=== PATIENT | female | born 1950 | race Caucasian/White ===

== ENCOUNTER 2016-12-26 18:11 | Inpatient (IN) | payer MEDICARE, OTHER ==
[~2016-12-26] VITALS: Ht 160 cm; Wt 73.8 kg
[~2016-12-26 18:11] MED LIST: /ESOM40CA; /WARF25TA; ACET65TA; CODCAP; COUM1TAB; FLEXERIL; GARLPOW; IMMODIUM; OMEGA 3; PERC5TAB8; PERC7.5T8; PROZ40CA; SIMV20TA2; VERA240T11; VITA100T; VITAMIN D50000 UNT; WELCHOL
--- NOTE | 2016-12-26 18:49 | REP ---
Portable chest, single AP view, the patient semi upright: Comparison is the PA and lateral study of 2009. The lung higginboth[place] are clear. The cardiac size is normal. The kati, mediastinum, and bony thorax are unremarkable. Impression: Negative portable chest. Signed by Ramone Lombardi MD 12/26/2016 06:41 P
[2016-12-26 19:05] LABS: DIFF SLIDE NUMBER 312; RED CELL DISTRIBUTION WIDTH 12.3 % (11.5-14.5); WHITE BLOOD COUNT 5.3 K/mm3 (4.0-10.0)
[2016-12-26 19:27] LABS: CHLORIDE LEVEL 88 MEQ/L (98-107); CREATININE FOR GFR 0.53 MG/DL (0.55-1.02); GLUCOSE, FASTING 207 MG/DL (80-110); POTASSIUM SERUM 3.8 MEQ/L (3.5-5.1); SODIUM LEVEL 127 MEQ/L (136-145)
[2016-12-26 19:40] LABS: MEAN CORPUSCULAR HEMOGLOBIN 38.4 pg (27.0-33.0)
[2016-12-26 19:41] LABS: MEAN CORPUSCULAR HGB CONC 38.8 g/dl (32.0-36.5); PLATELET COUNT, AUTOMATED 157 k/mm3 (150-450)
[2016-12-26 19:55] LABS: BASOPHILS 1 % (0-4)
[2016-12-26 20:01] LABS: BLOOD UREA NITROGEN 11 MG/DL (7-18); CALCIUM LEVEL 7.9 MG/DL (8.8-10.2)
[2016-12-26] MEDS ORDERED: NS 500 ML IV ONE (20:30)
[2016-12-26 20:32] LABS: ANION GAP 11 MEQ/L (8-16); CARBON DIOXIDE LEVEL 28 MEQ/L (21-32)
[2016-12-26] MEDS ORDERED: CALA240T PO (21:30)
[2016-12-26] MEDS ORDERED: CHOLPOW (21:30)
[2016-12-26] MEDS ORDERED: ASPI81TA85 PO (21:30)
[2016-12-26] MEDS ORDERED: CALC1TAB40 PO (21:30)
[2016-12-26] MEDS ORDERED: ATOR40TA PO (21:30)
[2016-12-26] MEDS ORDERED: MILK200C PO (21:30)
[2016-12-26] MEDS ORDERED: FLUO20CA8 PO (21:30)
[2016-12-26] MEDS ORDERED: ALLO10TA PO (21:30)
[2016-12-26] MEDS ORDERED: FLAX1000 PO (21:30)
[2016-12-26] MEDS ORDERED: clonidine TOP (21:30)
[2016-12-26] MEDS ORDERED: CHOL4POW4 PO (21:30)
[2016-12-26] MEDS ORDERED: MICA80TA3 PO (21:32)
[2016-12-26] MEDS ORDERED: AMIT50TA PO (21:35)
[2016-12-26] MEDS ORDERED: LR 1,000 ML IV ONE (22:30)
[2016-12-26] MEDS ORDERED: BENA25TA9 PO (23:17)
[2016-12-26] MEDS ORDERED: ALPR0.25 PO (23:17)
[2016-12-26] MEDS ORDERED: ESOM1CAP5 PO (23:17)
[2016-12-26] MEDS ORDERED: NS 1,000 ML IV SCH (23:36)
[2016-12-27] VITALS (8 sets, daily range): BP systolic 127–186; BP diastolic 72–84
[2016-12-27 00:56] LABS: CARBON DIOXIDE LEVEL 28 MEQ/L (21-32); CHLORIDE LEVEL 96 MEQ/L (98-107); CREATININE FOR GFR 0.64 MG/DL (0.55-1.02); GLUCOSE, FASTING 196 MG/DL (80-110); POTASSIUM SERUM 3.9 MEQ/L (3.5-5.1); SODIUM LEVEL 131 MEQ/L (136-145)
[2016-12-27] MEDS: AMITRIPTYLINE 50 MG TAB PO SCH ×2 (01:07→21:00)
[2016-12-27 01:15] LABS: BLOOD UREA NITROGEN 8 MG/DL (7-18); CALCIUM LEVEL 8.2 MG/DL (8.8-10.2)
[2016-12-27 01:25] LABS: ANION GAP 7 MEQ/L (8-16)
--- NOTE | 2016-12-27 01:53 | HPE ---
DATE OF ADMISSION: 12/26/2016 PRIMARY CARE PROVIDER: Dr. Sumeet Enriquez ORTHOPEDIC SURGERY: Dr. Mack [facility]. NEUROLOGY: Dr. Newman OPTHALMOLOGY: Dr. Quiroga CHIEF COMPLAINT: Dizziness when standing. HISTORY OF PRESENT ILLNESS: The patient is a 66-year-old female with a history of hypertension and chronic back and neck pain who, three weeks ago, started a new patch from her primary care provider. She thought it was a patch for pain. Since then, she has had progressively worsening lightheadedness and dizziness when standing. In the emergency room the patch was examined and found to be clonidine. The patient was not aware that this was aware this was an antihypertensive and she thought it was a pain patch. At the present time, the patient reports she feels a little bit better with the patch removed and getting some IV fluids. In passing, the patient reports that she has been feeling tremulous for about one year. She has seen Dr. Newman and Dr. Enriquez and without any clear answer as to why she has her tremulous sensations. At the present time, she is feeling better. She denies chest pain, shortness of breath, fevers, chills, nausea, vomiting, or diarrhea. PAST MEDICAL HISTORY: 1. Irritable bowel syndrome. 2. Hypertension. 3. Depression. 4. Chronic back pain. 5. Gastroesophageal reflux disease. 6. Gout. 7. Carpal tunnel syndrome. 8. Anxiety. ALLERGIES: MILK PRODUCTS, CODEINE, ERYTHROMYCIN, LISINOPRIL. SURGICAL HISTORY: 1. Right knee arthroplasty 2008. 2. Tubal ligation many decades ago. 3. Liver biopsy 2014. SOCIAL HISTORY: The patient has been under significant stress and anxiety lately. Her sister earlier this month. She is moving this month. She admits to having two drinks per day. She denies tobacco or illicit drug use. She lives with her who accompanies her to the emergency room. FAMILY HISTORY: The patient tells me she had a sister with [employer]'s. REVIEW OF SYSTEMS: Negative other than history of present illness (HPI). HOME MEDICATIONS: - calcium, magnesium and zinc supplement - Nexium 40 mg daily - linseed (flaxseed) oil 2000 grams daily - Micardis 80/12.5 mg daily - Silybum marianum (milk thistle) 400 mg daily - allopurinol 100 mg daily - Xanax 0.25 mg three times a day as needed for anxiety - amitriptyline 50 mg at bedtime - atorvastatin 40 mg daily - diphenhydramine 25 mg daily - fluoxetine 40 mg daily - verapamil 240 mg daily PHYSICAL EXAMINATION: Temperature 98.2, respiratory rate 15, blood pressure 166/76 while laying, 149/88 while standing, oxygen saturation 98% on room air. GENERAL: She is a pleasant, obese female laying flat in bed. She is in no distress. HEENT: Cranial nerves II-XII are grossly intact. She has moist mucous membranes. No elevation of central venous pressure (CVP). CARDIOVASCULAR EXAMINATION: S1, S2. Regular. She is not bradycardic. RESPIRATORY EXAMINATION: Clear. ABDOMINAL EXAMINATION: Obese. EXTREMITIES: No clubbing, cyanosis or edema. NEUROLOGICALLY: She is intact. She does not wish to cooperate with gait testing at this time. LABORATORY STUDIES: WBC 5.3, hemoglobin 14.7, platelet count 157. Chemistry panel: Sodium 127, potassium 3.8, chloride 88, bicarbonate 28, BUN 11, creatinine 0.5. One set of cardiac enzymes is negative. IMAGING: Chest x-ray was a negative portable study. ASSESSMENT AND PLAN: This is a 66-year-old female with symptomatic orthostatic hypotension and hyponatremia. PROBLEMS: 1. Symptomatic orthostatic hypotension. The patient was recently started on clonidine patches and her symptoms gradually worsened since then. This is likely secondary to over-medication with antihypertensives. At this time, the clonidine patches will be discontinued. I will continue her with her telmisartan and verapamil with holding parameters. Monitor her on telemetry to rule out an arrhythmias. 2. Hyponatremia. Will check a stat basic metabolic panel (BMP) at this time as she was 127 and she received IV fluids. She is on 12.5 mg of hydrochlorothiazide at home, which could potentially be causing this. She is also on fluoxetine, which could be causing this. We will stop hydrochlorothiazide and decrease her dose of fluoxetine from 40 mg to 20 mg. 3. Chronic tremulousness. The patient has had significant anxiety, but worse anxiety tremors and hyponatremia are known adverse effects to fluoxetine, and as such, I will taper down this medication, but I would not abruptly stop it, as a trial to see if this does improve her symptoms. 4. Anxiety. Continue with amitriptyline. 5. Depression. Continue with fluoxetine at a lower dose. 6. Dyslipidemia. Continue with Lipitor. 7. Gout. Continue with allopurinol. 8. Deep venous thrombosis (DVT) prophylaxis. The patient will be on Lovenox. 9. Gastroesophageal reflux disease. The patient will be on pantoprazole. 10. Chronic neck and back pain. She does not have any prescription medications for this at this time. Will continue to monitor. If she does develop pain, we will consider acetaminophen. DISPOSITION: The patient is admitted to the progressive care unit to Dr. Magdaleno's service, who will continue following the patient at 7:00 a.m. tomorrow.
[2016-12-27 07:31] LABS: MEAN CORPUSCULAR HEMOGLOBIN 36.2 pg (27.0-33.0); MEAN CORPUSCULAR VOLUME 98.9 fl (80.0-96.0); RED CELL DISTRIBUTION WIDTH 12.5 % (11.5-14.5)
[2016-12-27 08:00] LABS: ALKALINE PHOSPHATASE 203 U/L (45-117); AST/SGOT 198 U/L (15-37); BILIRUBIN,TOTAL 0.6 MG/DL (0.2-1.0); BLOOD UREA NITROGEN 5 MG/DL (7-18); CALCIUM LEVEL 7.9 MG/DL (8.8-10.2); CARBON DIOXIDE LEVEL 20 MEQ/L (21-32); CHLORIDE LEVEL 102 MEQ/L (98-107); GLUCOSE, FASTING 123 MG/DL (80-110); POTASSIUM SERUM 3.5 MEQ/L (3.5-5.1); TOTAL PROTEIN 6.3 GM/DL (6.4-8.2)
[2016-12-27 08:14] LABS: MEAN CORPUSCULAR HGB CONC 36.7 g/dl (32.0-36.5)
[2016-12-27] MEDS ORDERED: OXAZEPAM 10 MG CAP PO PRN (08:15)
[2016-12-27 08:17] LABS: ALT/SGPT 182 U/L (12-78)
--- NOTE | 2016-12-27 08:27 | ECGEPIP ---
Stationary ECG Study [facility] - ED Test Date: 2016-12-26 Pat Name: SHUBHAM ESCOBAR Department: Room: [place] [address] Gender: F Income Auditor: UriosteguiB: 1950 Requested By: CRISTOPHER Nails Order Number: [id number] Reading MD: Loco Robertson Measurements Intervals [place] Rate: 93 P: 59 [place]: 168 QRS: 17 QRSD: 86 T: 40 QT: 359 QTc: 448 Interpretive Statements SINUS RHYTHM WITH 1ST DEGREE AV BLOCK Electronically Signed On 12-27-2016 8:27:11 EDT by Loco Robertson
[2016-12-27 08:29] LABS: ALBUMIN 2.7 GM/DL (3.2-5.2); ALBUMIN/GLOBULIN RATIO 0.75 (1.00-1.93); ANION GAP 15 MEQ/L (8-16); SODIUM LEVEL 137 MEQ/L (136-145)
[2016-12-27] MEDS ORDERED: FLUoxetine 20 MG CAP PO SCH (09:00)
[2016-12-27] MEDS: hydroCHLOROthiazide 12.5 MG CAPSULE PO SCH (10:22)
[2016-12-27] MEDS: ATORVASTATIN 20 MG TAB PO SCH (10:23)
[2016-12-27] MEDS: diphenhydrAMINE 25 MG CAP PO SCH (10:23)
[2016-12-27] MEDS: FLUoxetine 20 MG CAP PO SCH (10:23)
[2016-12-27] MEDS: PANTOPRAZOLE 40MG TAB (PROTONIX) PO SCH (10:23)
[2016-12-27] MEDS: ENOXAPARIN 40 MG/0.4 ML SYRINGE (J1650) SC SCH (10:24)
[2016-12-27] MEDS: ALLOPURINOL 100 MG TAB PO SCH (10:24)
[2016-12-27] MEDS: TELMISARTAN 20 MG TAB PO SCH (10:24)
[2016-12-27] MEDS: FLUTICASONE PROP 0.05% NASAL SPRAY 16 GM (FLONASE) SCH ×2 (10:25→21:00)
[2016-12-27] MEDS: VERAPAMIL 120 MG SR TAB PO SCH (10:25)
--- NOTE | 2016-12-27 11:11 | IPN ---
DATE: 12/27/2016 66-year-old female seen at bedside, resting comfortably. I did note that her blood pressure has been elevated. She has complained about a headache behind her eyes. She has had some clear sinus drainage and a history of seasonal allergies. No cough. OBJECTIVE: VITAL SIGNS: Temperature is 97.7, pulse 93, respiratory rate 20, blood pressure 170/79, SpO2 is 96% on room air. GENERAL APPEARANCE: She is alert, oriented, pleasant. HEENT: Clear rhinorrhea with postnasal drip. Otherwise, unremarkable. LUNGS: Clear. HEART: Regular rate and rhythm. ABDOMEN: Soft, obese, nontender, nondistended. Positive bowel sounds. No masses. No rebound. EXTREMITIES: No edema. No calf tenderness. LABORATORY DATA: White count is 4.0, hemoglobin 12.1, platelets 130,000. Sodium 137, potassium 3.5, chloride 102, bicarbonate 20, anion gap 15, BUN is 5, creatinine 0.70, glucose 123. AST 198, ALT is 182, alkaline phosphatase 203, albumin is 2.7. ASSESSMENT AND PLAN: 1. Symptomatic orthostatic hypotension, seems to be improved. Her clonidine patch has been removed and now her systolic blood pressure seems to be running high. We will need to make some adjustments. 2. Hypertension. We will go ahead and give her morning dose of Micardis. We will make sure that she is back on her home medications except for the clonidine patch and make appropriate adjustments regarding her blood pressure. 3. Hyponatremia, resolved. We will resume her hydrochlorothiazide. 4. Elevated transaminitis. We will go ahead and check the right upper quadrant ultrasound, hepatitis panel. However, she does have a history of alcohol use, according to the family. Her total bilirubin was 0.6. 5. Alcohol use/abuse. The patient is unable to quantify more than she drinks "some wine every day." We will go ahead and put as needed Serax on and monitor for withdrawal symptoms. 6. Irritable bowel syndrome, stable. 7. Depression, stable. No active disease. 8. Chronic back pain, stable. 9. Gastroesophageal reflux disease (GERD), stable. 10. History of gout, stable. 11. Carpal tunnel syndrome by history. No current issues. 12. History of anxiety, appears to be stable. 13. Deep vein thrombosis (DVT) prophylaxis. Lovenox. DISPOSITION: Again, the patient's clonidine patch has been discontinued, since it did appear to make her more orthostatic. We will resume her hydrochlorothiazide and continue on Verapamil, Micardis, and see how she does over the next 24 to 48 hours. Concerning her transaminitis, we will go ahead and check a hepatitis panel, check right upper quadrant ultrasound as well, and anticipate her home discharge within the next 24 to 48 hours.
--- NOTE | 2016-12-27 16:03 | REP ---
Abdominal right upper quadrant ultrasound: A comparison is 01/19/2015. There is a negative Mack's sign to transducer pressure. There is no cholelithiasis. There is focal gallbladder wall thickening along the portion of the anterior wall of uncertain significance. This could represent focal none calculus cholecystitis. Harmony on clinical findings is recommended. The common biliary duct is dilated measuring up to 8.4 mm. No calculus is identified within the common duct by ultrasound, however ultrasound is insensitive. Given given this finding in combination with the focal gallbladder wall thickening, consider MRI follow up for further evaluation. No intrahepatic biliary duct dilatation is identified. The hepatic parenchyma is echogenic compatible with hepato steatosis. No focal hepatic masses or cysts are identified. The pancreas is obscured by bowel gas. There is no right renal hydronephrosis, calculus, mass or cyst. Right kidney is normal size 10.4 cm in length. Impression: No cholelithiasis. The common biliary duct is 8.4 mm in diameter. This is dilated suggestive of choledocholithiasis , however, no common duct calculus is identified by ultrasound. All ultrasound, however, is insensitive. Additionally there is focal gallbladder wall thickening. This may represent focal cholecystitis. Because of these findings consider follow-up gallbladder and common duct MRI. Signed by Ramone Lombardi MD 12/27/2016 03:55 P
[2016-12-27] MEDS ORDERED: SLF 3 ML SYR IV PRN (20:00)
[2016-12-27] MEDS: SLF 3 ML SYR IV SCH (22:00)
[2016-12-27] MEDS: ALPRAZolam 0.25 MG TAB PO PRN (22:13)
[2016-12-28] VITALS (10 sets, daily range): BP systolic 91–153; BP diastolic 54–83
[2016-12-28 05:50] LABS: MEAN CORPUSCULAR HEMOGLOBIN 34.1 pg (27.0-33.0); MEAN CORPUSCULAR HGB CONC 33.9 g/dl (32.0-36.5); MEAN CORPUSCULAR VOLUME 100.5 fl (80.0-96.0); RED CELL DISTRIBUTION WIDTH 12.5 % (11.5-14.5); WHITE BLOOD COUNT 3.8 K/mm3 (4.0-10.0)
[2016-12-28] MEDS: SLF 3 ML SYR IV SCH ×3 (06:00→21:50)
[2016-12-28 06:10] LABS: ANION GAP 5 MEQ/L (8-16); BLOOD UREA NITROGEN 3 MG/DL (7-18); CALCIUM LEVEL 8.7 MG/DL (8.8-10.2); CARBON DIOXIDE LEVEL 30 MEQ/L (21-32); CHLORIDE LEVEL 101 MEQ/L (98-107); CREATININE FOR GFR 0.76 MG/DL (0.55-1.02); GLOMERULAR FILTRATION RATE > 60.0 (>45); GLUCOSE, FASTING 118 MG/DL (80-110); POTASSIUM SERUM 4.2 MEQ/L (3.5-5.1); SODIUM LEVEL 136 MEQ/L (136-145)
[2016-12-28] MEDS: ENOXAPARIN 40 MG/0.4 ML SYRINGE (J1650) SC SCH (09:18)
[2016-12-28] MEDS: hydroCHLOROthiazide 12.5 MG CAPSULE PO SCH (09:19)
[2016-12-28] MEDS: PANTOPRAZOLE 40MG TAB (PROTONIX) PO SCH (09:19)
[2016-12-28] MEDS: ATORVASTATIN 20 MG TAB PO SCH (09:19)
[2016-12-28] MEDS: ALLOPURINOL 100 MG TAB PO SCH (09:19)
[2016-12-28] MEDS: diphenhydrAMINE 25 MG CAP PO SCH (09:19)
[2016-12-28] MEDS: ACETAMINOPHEN TAB 650MG DOSE (2X325MG) PO PRN ×2 (09:20→13:58)
[2016-12-28] MEDS: FLUoxetine 20 MG CAP PO SCH (09:20)
[2016-12-28 10:40] LABS: ALKALINE PHOSPHATASE 187 U/L (45-117); AST/SGOT 140 U/L (15-37); BILIRUBIN,DIRECT < 0.1 MG/DL (0.0-0.2); BILIRUBIN,TOTAL 0.5 MG/DL (0.2-1.0); TOTAL PROTEIN 7.1 GM/DL (6.4-8.2)
[2016-12-28 10:54] LABS: ALT/SGPT 144 U/L (12-78)
[2016-12-28 10:58] LABS: ALBUMIN 2.7 GM/DL (3.2-5.2); ALBUMIN/GLOBULIN RATIO 0.61 (1.00-1.93)
[2016-12-28] MEDS: ALPRAZolam 0.25 MG TAB PO PRN ×2 (11:14→21:50)
[2016-12-28] MEDS: TELMISARTAN 20 MG TAB PO SCH (11:17)
[2016-12-28] MEDS: VERAPAMIL 120 MG SR TAB PO SCH (11:18)
--- NOTE | 2016-12-28 11:25 | IPN ---
DATE: 12/28/2016 66-year-old seen at bedside resting comfortably. She did have some abdominal bloating, but no nausea, vomiting and no chest pain. She stated that she did feel a little lightheaded when she got up to use the restroom this morning. Otherwise she is doing better. OBJECTIVE: Temperature is 98.5, pulse 85 and regular, respiratory rate 18, blood pressure (BP) 124/59, and SPO2 is 93% on room air. We did do orthostatics on her yesterday afternoon which were negative. She does not appear to be orthostatic at this time. HEENT: Unremarkable. Lungs: Clear. Heart: Regular rate and rhythm. Abdomen: Soft. Extremities: No edema. No calf tenderness. She did not show any abnormalities on telemetry. LABORATORY DATA: White count is 3.8, hemoglobin 12.4, platelets 110,000. Sodium 136, potassium 4.2, chloride 101, bicarb 30, anion gap 5, BUN is 3, creatinine 0.76, glucose 118, calcium 8.7, direct bilirubin less than 0.1, total bilirubin 0.5, AST 140, ALT 144, alkaline phosphatase 187. These are improved numbers from yesterday. Her troponin remained less than 0.02. Hepatitis panel was unremarkable for hepatitis A, B and C serologies. Ultrasound of the right upper quadrant and liver with no cholelithiasis; however, the common biliary duct is dilated at 8.4 mm suggestive of choledocholithiasis, but no common duct calculus was identified by ultrasound. Suggested followup MRCP. ASSESSMENT/PLAN: 1. Symptomatic orthostatic hypotension, much improved. Will continue to monitor blood pressures. We have made some adjustments in her medications. Will keep her on telemetry overnight. 2. Hypertension, much improved. Again, we did make adjustments as indicated and got rid of her clonidine patch. 3. Hyponatremia, resolved. 4. Elevated transaminitis, does appear to be slightly improved. Hepatitis panel was negative. She does have a history of alcohol use/abuse, which I encouraged cessation. Her bilirubin is unremarkable, but we will go ahead and do a follow-up MRCP due to her abnormal findings on right upper quadrant ultrasound/ 6. Alcohol use/abuse. Again, advised cessation. Continue on Serax as needed. Monitor for withdrawal. 7. Irritable bowel syndrome, stable. 8. Depression stable. No active disease. 9. Chronic back pain, stable. 10. Gastroesophageal reflux disease (GERD). Stable. 11. History of gout. No current issues. 12. Carpal tunnel syndrome, without any issues. 13. History of anxiety, appears to be stable. 14. Deep vein thrombosis (DVT) prophylaxis, on Lovenox. DISPOSITION: Will check a MRCP as indicated, follow her through the night and hopefully discharge her home tomorrow.
[2016-12-28] MEDS: FLUTICASONE PROP 0.05% NASAL SPRAY 16 GM (FLONASE) SCH ×2 (13:48→20:41)
--- NOTE | 2016-12-28 15:01 | REP ---
MRCP: MRCP exam is accomplished utilizing multiple heavy T2 weighted sequences in the axial and coronal planes. MIP reconstruction images are performed. There is slight dilatation of the common bile duct, with a maximum diameter of 8 mm. No filling defects or stricture is seen. The pancreatic duct is normal in caliber. The gallbladder demonstrates moderate distention with mild edema at the wall of the gallbladder. No definite filling defects are seen in the gallbladder lumen. The visualized portions of the liver, spleen, adrenals, pancreas and kidneys appear unremarkable. I see no adenopathy or free fluid in the visualized abdomen. IMPRESSION: Slight dilatation of the common bile duct at 8 mm. No intraluminal filling defect or stricture. Moderately distended gallbladder with mild gallbladder wall edema. No definite internal stones. Signed by Ramone Fugn MD 12/28/2016 03:17 P
[2016-12-28] MEDS: AMITRIPTYLINE 50 MG TAB PO SCH (20:41)
[2016-12-29] MEDS: SLF 3 ML SYR IV SCH (05:53)
[2016-12-29 06:00] VITALS: BP 134/65
[2016-12-29] MEDS ORDERED: FLUO20CA9 PO (06:30)
[2016-12-29 06:32] LABS: MEAN CORPUSCULAR HEMOGLOBIN 34.8 pg (27.0-33.0); MEAN CORPUSCULAR HGB CONC 34.5 g/dl (32.0-36.5); MEAN CORPUSCULAR VOLUME 100.9 fl (80.0-96.0); RED CELL DISTRIBUTION WIDTH 12.5 % (11.5-14.5); WHITE BLOOD COUNT 3.8 K/mm3 (4.0-10.0)
[2016-12-29 06:45] LABS: ANION GAP 7 MEQ/L (8-16); BLOOD UREA NITROGEN 5 MG/DL (7-18); CALCIUM LEVEL 8.2 MG/DL (8.8-10.2); CARBON DIOXIDE LEVEL 30 MEQ/L (21-32); CHLORIDE LEVEL 100 MEQ/L (98-107); CREATININE FOR GFR 0.72 MG/DL (0.55-1.02); GLOMERULAR FILTRATION RATE > 60.0 (>45); GLUCOSE, FASTING 104 MG/DL (80-110); POTASSIUM SERUM 3.1 MEQ/L (3.5-5.1); SODIUM LEVEL 137 MEQ/L (136-145)
[2016-12-29] MEDS ORDERED: POTASSIUM CHLORIDE 10 MEQ SR TABLET PO ONE (07:30)
[2016-12-29] MEDS: TELMISARTAN 20 MG TAB PO SCH (09:00)
[2016-12-29 09:01] VITALS: BP 131/73
[2016-12-29] MEDS: FLUoxetine 20 MG CAP PO SCH (09:01)
[2016-12-29] MEDS: VERAPAMIL 120 MG SR TAB PO SCH (09:01)
[2016-12-29] MEDS: PANTOPRAZOLE 40MG TAB (PROTONIX) PO SCH (09:02)
[2016-12-29] MEDS: ATORVASTATIN 20 MG TAB PO SCH (09:02)
[2016-12-29] MEDS: ALLOPURINOL 100 MG TAB PO SCH (09:02)
[2016-12-29] MEDS: hydroCHLOROthiazide 12.5 MG CAPSULE PO SCH (09:02)
[2016-12-29] MEDS: ENOXAPARIN 40 MG/0.4 ML SYRINGE (J1650) SC SCH (09:02)
[2016-12-29] MEDS: diphenhydrAMINE 25 MG CAP PO SCH (09:02)
[2016-12-29] MEDS: FLUTICASONE PROP 0.05% NASAL SPRAY 16 GM (FLONASE) SCH (09:03)
--- NOTE | 2016-12-29 11:18 | DSES ---
DATE OF ADMISSION: 12/26/2016 DATE OF DISCHARGE: 12/29/2016 PRIMARY CARE PROVIDER: Sumeet Enriquez MD ORTHOPEDIC SURGERY: Dr. Mack at [facility]. NEUROLOGY: Dr. Kathryn Newman OPHTHALMOLOGY: Dr. Abdoul Quiroga CONSULTANTS: None. PROCEDURES: None. COMPLICATIONS: None. ADMISSION/DISCHARGE DIAGNOSES: 1. Orthostatic hypotension with syncopal episode, secondary to low blood pressure. 2. Hypertension with medications adjusted. 3. Irritable bowel syndrome. 4. Depression. 5. Chronic back pain. 6. Gout. 7. Carpal tunnel syndrome. 8. History of anxiety. BRIEF HOSPITAL COURSE: Ms. Meza presented to the emergency department on 12/26/2016. She has had apparently some changes in her blood pressure medications as well as her Prozac. She was felt to be orthostatic and had progressively worsening lightheadedness and dizziness while on clonidine patch. That was discontinued in the emergency department. While on the PCU on telemetry she did not have any abnormalities. EKG was unremarkable and her medications were adjusted which will be adjusted in the medication reconciliation list listed below. At any rate, she has done well for the last 24 hours. Her blood pressure has been under better control. No lightheadedness, dizziness. No chest pain, nausea or vomiting. For further information regarding intake, physical, labs and diagnostics, please refer to the history and physical dated 12/26/[address] Martins. PHYSICAL EXAMINATION: Today, temperature 97.8, pulse 87 and regular, respiratory rate is 17, blood pressure 134/65, SpO2 is 93% on room air. GENERAL: The patient appears to be in no acute distress. She is alert and pleasant. HEENT: Unremarkable. LUNGS: Clear. HEART: Regular rate and rhythm. ABDOMEN: Soft. EXTREMITIES: No edema, no calf tenderness. LABORATORIES: White count is 3.8, hemoglobin 12.2, platelets are 106,000. Sodium 137, potassium 3.1, which we supplemented. Chloride 100, bicarb 30, anion gap 7, BUN 5, creatinine 0.72, glucose is 104. DISCHARGE CONDITION: Good. DISPOSITION: Discharge to home. DISCHARGE MEDICATIONS: - fluoxetine decreased to 20 mg daily - allopurinol 100 mg daily - Xanax 0.25 mg three times a day - amitriptyline 50 mg at bedtime - Lipitor 40 mg daily - calcium one tablet daily - Benadryl 25 mg at bedtime as needed - Nexium 40 mg daily - linseed oil 2000 mg daily - Micardis hydrochlorothiazide 80/12.5 mg one tablet daily - milk thistle 400 mg daily - verapamil 240 mg daily DISCHARGE INSTRUCTIONS: Discharge to home. Followup with Dr. Enriquez in a week. Activity as tolerated. Medications adjusted as outline above. Additionally, she did have workup for abnormal LFTs with elevated AST and ALT, which do appear to be trending downward. Hepatitis serology was unremarkable. Right upper quadrant ultrasound did suggest a small dilation of the common bile duct, however, MRCP done on followup did show some slight dilation of the common bile duct at 8 mm, but no intraluminal filling defect or stricture. Moderately distended gallbladder with mild gallbladder wall edema, but no definite internal stones. She can followup with her primary care provider. If she should develop further problems with her gallbladder she can be referred accordingly. She should seek medical attention if symptoms should worsen or progress. She understands this and I did encourage her to avoid alcohol consumption since this could be affecting her liver enzymes. However, liver ultrasound did not show any demonstrable fatty liver disease. Discharge took approximately 35 minutes.
== END 2016-12-29 10:50 | disposition home or self-care (01) | DRG 312 ==
LOC: M ED 19:41 → M ED INP 23:36 → M PCU 12-27 19:02 → M MSPAV 12-29 02:49
PROVIDERS: ADMIT Internal Medicine; ATTEND Hospitalist
DX: I95.1 Orthostatic hypotension (principal); E87.1 Hypo-osmolality and hyponatremia; R74.0 Nonspecific elevation of levels of transaminase and lactic acid dehydrogenase [LDH]; T88.7XXA Unspecified adverse effect of drug or medicament, initial encounter; I10 Essential (primary) hypertension; F32.9 Major depressive disorder, single episode, unspecified; M10.9 Gout, unspecified; K58.9 Irritable bowel syndrome, unspecified; M54.5 Low back pain; Z79.899 Other long term (current) drug therapy; K21.9 Gastro-esophageal reflux disease without esophagitis; F41.9 Anxiety disorder, unspecified; Z88.5 Allergy status to narcotic agent; Z88.1 Allergy status to other antibiotic agents; Z91.011 Allergy to milk products; E78.5 Hyperlipidemia, unspecified; M54.2 Cervicalgia; G56.00 Carpal tunnel syndrome, unspecified upper limb

== ENCOUNTER → 2017-03-09 | Outpatient (CLI) | payer MEDICARE, OTHER ==
[~2017-03-09] MED LIST changes: +ALLO10TA PO; +ALPR0.25 PO; +AMIT50TA PO; +ASPI81TA85 PO; +ATOR40TA75 PO; +BENA25TA10 PO; +CALA240T PO; +CALC1TAB40 PO; +CHOL4POW4 PO; +CHOLPOW; +ESOM1CAP5 PO; +FLAX1000 PO; +FLUO20CA19 PO; +FLUO20CA8 PO; +MICA80TA3 PO; +MILK200C PO; +clonidine TOP
--- NOTE | 2017-03-09 13:21 | REP ---
HIDA SCAN WITH GALLBLADDER EJECTION FRACTION: Following the intravenous administration of 6.4 millicuries technetium 99m mebrofenin, multiple images of the right upper quadrant are performed every 5 minutes for a period of 1 hour. The gallbladder is visualized at 10 minutes post injection. There is biliary to bowel transit at 45 minutes post injection with no scintigraphic evidence of cholecystitis. At the 1-hour tamie, 8 ounces of Ensure Enlive was ingested and further imaging performed for 1 hour. Gallbladder activity is measured and the gallbladder ejection fraction is calculated to be 42%, which is normal. IMPRESSION: Normal gallbladder ejection fraction at 42%. Prior gallbladder ejection fraction 03/25/2008 was 86%. Signed by Ramone Fung MD 03/09/2017 05:02 P
== END ==
LOC: M RAD 07:52
PROVIDERS: ATTEND Physician Assistant
DX: K81.9 Cholecystitis, unspecified (principal); R94.5 Abnormal results of liver function studies; R10.11 Right upper quadrant pain; K83.8 Other specified diseases of biliary tract
CPT/HCPCS: 78227; A9537; J2805

== ENCOUNTER → 2017-05-29 | Outpatient (CLI) | payer MEDICARE, OTHER ==
[2017-05-29 13:55] LABS: ALBUMIN/GLOBULIN RATIO 1.11 (1.00-1.93); BILIRUBIN,DIRECT 0.1 MG/DL (0.0-0.2); BILIRUBIN,TOTAL 0.4 MG/DL (0.2-1.0); TOTAL PROTEIN 7.6 GM/DL (6.4-8.2)
[2017-06-03 10:12] LABS: BILIRUBIN, TOTAL 0.4 mg/dL (0.0-1.2); FIBROSIS STAGE F0-F1 (.); GGT 101 IU/L (0-60); GLUCOSE, SERUM 90 mg/dL (65-99); HAPTOGLOBIN 160 mg/dL (34-200); HEIGHT 64 Inches (.); TRIGLYCERIDES 283 mg/dL (0-149); WEIGHT 170 LBS (.)
== END ==
LOC: M LAB 12:01
PROVIDERS: ATTEND Internal Medicine Gastroenterology
DX: K59.1 Functional diarrhea (principal); K75.81 Nonalcoholic steatohepatitis (NASH); R10.11 Right upper quadrant pain; K74.5 Biliary cirrhosis, unspecified; K21.9 Gastro-esophageal reflux disease without esophagitis

== ENCOUNTER → 2017-10-02 | Outpatient (CLI) | payer MEDICARE, OTHER | LOC: M WHC 09:58 | DX: N95.0 Postmenopausal bleeding (principal); R93.8 Abnormal findings on diagnostic imaging of other specified body structures | CPT/HCPCS: 76830 ==

== ENCOUNTER → 2017-10-06 | Outpatient (CLI) | payer MEDICARE, OTHER | LOC: M WHC 11:53 | DX: Z12.31 Encounter for screening mammogram for malignant neoplasm of breast (principal); Z78.0 Asymptomatic menopausal state; Z98.890 Other specified postprocedural states; Z92.0 Personal history of contraception | CPT/HCPCS: 77067 ==

== ENCOUNTER → 2017-10-06 | Outpatient (REF) | payer MEDICARE, OTHER ==
[2017-10-11 00:06] LABS: HPV HYBRID CAPTURE II Negative (Negative)
== END ==
LOC: M SFHCWAGY 12:01
DX: Z12.4 Encounter for screening for malignant neoplasm of cervix (principal)
CPT/HCPCS: G0123

== ENCOUNTER → 2017-10-18 | Outpatient (REF) | payer MEDICARE, OTHER ==
[2017-10-18 15:29] LABS: BASO % 0.7 % (0.0-1.0); EOS % 0.4 % (0.0-3.0); HEMATOCRIT 36.9 % (36.0-47.0); HEMOGLOBIN 12.9 g/dl (12.0-16.0); LYMPH # 1.3 10^3/uL (1.5-4.5); MEAN CORPUSCULAR HEMOGLOBIN 32.3 pg (27.0-33.0); MEAN CORPUSCULAR VOLUME 92.5 fl (80.0-96.0); MONO # 0.3 10^3/uL (0.0-0.8); NEUTROPHILS # 1.2 10^3/uL (1.8-7.7); NEUTROPHILS % 40.9 % (36.0-66.0); PLATELET COUNT, AUTOMATED 200 10^3/uL (150-450); RED BLOOD COUNT 3.99 10^6/uL (4.00-5.40); RED CELL DISTRIBUTION WIDTH 12.3 % (11.5-14.5); WHITE BLOOD COUNT 2.8 10^3/uL (4.0-10.0)
[2017-10-18 15:53] LABS: C REACTIVE PROTEIN QUANTITATIV < 0.30 MG/DL (0.00-0.30)
[2017-10-18 15:53] LABS: RHEUMATOID FACTOR QUANT < 10.0 IU/ML (<15.0)
[2017-10-18 15:55] LABS: ERYTHROCYTE SEDIMENTATION RATE 39 mm/hr (0-30)
== END ==
LOC: M LABDRAW1 14:51
DX: M54.5 Low back pain (principal)
CPT/HCPCS: 86140

== ENCOUNTER 2017-11-09 07:15 | Day surgery (SDC) | payer MEDICARE, OTHER ==
[2017-11-09] MEDS ORDERED: PROPOFOL 200 MG/20 ML VIAL As Ordered ×2 (07:52→08:48)
[2017-11-09] MEDS ORDERED: LIDOCAINE 2% INJ 100 MG/5 ML SDV (FOR ANES.) As Ordered (07:52)
[2017-11-09] MEDS ORDERED: fentaNYL 100 MCG/2 ML INJECTION (J3010) As Ordered (07:53)
[2017-11-09] MEDS ORDERED: MIDAZOLAM INJ 2 MG/2 ML VIAL (J2250) As Ordered (07:53)
[2017-11-09] MEDS: LR 1,000 ML IV (08:08)
[2017-11-09] MEDS ORDERED: KETOROLAC 60 MG/2 ML VIAL (J1885) As Ordered (09:01)
[2017-11-09] MEDS: LIDOCAINE 1% MDV 20ML VIAL As Ordered (09:21)
== END 2017-11-09 11:25 | disposition home or self-care (01) ==
LOC: M SDC 07:15
DX: C54.1 Malignant neoplasm of endometrium (principal); N95.0 Postmenopausal bleeding; I10 Essential (primary) hypertension; E78.5 Hyperlipidemia, unspecified; K21.9 Gastro-esophageal reflux disease without esophagitis; Z79.899 Other long term (current) drug therapy; Z88.1 Allergy status to other antibiotic agents; Z88.5 Allergy status to narcotic agent; Z91.011 Allergy to milk products
CPT/HCPCS: 58558

== ENCOUNTER 2018-08-22 09:10 | Inpatient (IN) | payer MEDICARE, OTHER ==
[~2018-08-22] VITALS: Ht 160 cm; Wt 80.6 kg
[~2018-08-22 09:10] MED LIST changes: +DOXY100C PO; -FLAX1000 PO; +FLAX10008 PO; +SERT-138 PO; +VITA-122 PO
[2018-09-10] MEDS ORDERED: KEFL500C17 PO (09:04)
[2018-09-10] MEDS ORDERED: VITA400C7 PO (09:04)
[2018-09-10] MEDS ORDERED: FLAX10008 PO (09:04)
[2018-09-10] MEDS ORDERED: NEXI40CA PO (09:04)
--- NOTE | 2018-09-17 12:37 | HPE ---
DATE OF ADMISSION: 09/24/2018 HISTORY OF PRESENT ILLNESS: This is a pleasant 67-year-old female with continuing symptomatic left knee osteoarthritis. She has consented for left total knee arthroplasty per Dr. Maury Hightower. Medical optimization per Dr. Enriquez and x-rays are consistent with advanced osteoarthritis. ALLERGIES: More specifically reaction to CODEINE causing her difficulty sleeping. MEDICATIONS: - Lipitor 40 mg - sertraline HCl 50 mg - dicyclomine HCl 20 mg - Valtrex 1 gram - amitriptyline HCl 50 mg - Xanax 0.25 mg - Nexium 40 mg - verapamil HCl ER 240 mg - Micardis HCT 80 - 12.5 mg - allopurinol 100 mg MEDICAL PROBLEM LIST: 1. Left knee osteoarthritis. 2. Hypercholesteremia. 3. Hypertension. 4. Anxiety. PAST SURGICAL HISTORY: 1. Tubal ligation 1983. 2. Hysterectomy 12/2017 for uterine cancer. 3. Right knee surgery 2005. SOCIAL HISTORY: . Drinks three ethanol drinks per day. She is a former smoker. Denies illicit drugs. FAMILY HISTORY: Positive for heart disease, hypertension, arthritis, lymphoma, gastrointestinal upset, myocardial infarction, alcoholism. REVIEW OF SYSTEMS: Denies chest pain, shortness of breath, dyspnea on exertion, fever, chills, malaise, upper respiratory or urinary tract symptoms. PHYSICAL EXAMINATION: Height 62 inches, weight 175, temperature 98.7, blood pressure 128/79, respirations 16. This is a pleasant, overweight 67-year-old female in no acute distress. Alert and times three. Mood and affect are appropriate. She is ambulating without overt antalgia assistance, favoring. Normocephalic. Neck: Supple. Negative jugular venous distention (JVD) or bruits. Lungs: Clear to auscultation. Chest: Regular rate and rhythm. Bowels soft, nontender, sounds times three. Bilateral lower extremity skin intact with no irritation or signs of infection. Left knee valgus osteoarthritic alignment with lateral joint line tenderness. Crepitance about the knee through flexion/extension PSA congruent static and dynamic. No evidence of compartment syndrome or deep vein thrombosis (DVT). Medical clearance reviewed. Electrocardiogram (EKG) as read by Dr. Wolfe, sinus rhythm with borderline first-degree AV block 09/04/2018. Chest x-ray via [facility], service date 09/13/2018 showed no acute disease. Laboratories acquired on 09/13/2018 showed ESR 47, red cell with distribution 11.1, glucose fasting 102, otherwise within normal limits. GFR for Dr. Hightower's viewing was greater than 60. NOTE: Consent needs to be updated. IMPRESSION: 1. Left knee symptomatic tricompartmental valgus osteoarthritis. 2. The patient consented for a left total knee arthroplasty per Dr. Maury Hightower. 3. Medical optimization per Dr. Sumeet Enriquez. 4. On-call to OR, 2 grams IV Kefzol in OR. 5. Sequential compression device (SCD) and TEDs in OR. MTDD
[2018-09-24] VITALS (7 sets, daily range): BP systolic 140–188; BP diastolic 62–85
[2018-09-24] MEDS ORDERED: TRANEXAMIC ACID 100 MG/ML 10ML VIAL As Ordered ONE (07:26)
[2018-09-24] MEDS ORDERED: EPINEPHrine INJ 1 MG/ML 1ML AMP As Ordered ONE (07:27)
[2018-09-24] MEDS ORDERED: BUPIVACAINE LIPOSOME/PF 1.3% 20ML VIAL (13.3MG/ML)(EXPAREL)(C9290 PER1MG) As Ordered ONE (07:29)
[2018-09-24] MEDS ORDERED: ceFAZolin 1GM INJ (J0690 PER 500MG) As Ordered ONE (07:30)
[2018-09-24] MEDS ORDERED: LR 1,000 ML IV ONE (10:15)
--- NOTE | 2018-09-24 11:03 | IPN ---
DATE: 09/24/2018 The patient is seen and examined. She wishes to go ahead with a left total knee arthroplasty. She understands the nature of the procedure, the risks of bleeding, infection, damage to nerves, vessels, persistent pain and stiffness, blood clots, medical problems, among others. A preoperative clearance was obtained.
[2018-09-24] MEDS ORDERED: MIDAZOLAM INJ 2 MG/2 ML VIAL (J2250) As Ordered ONE ×2 (11:08→12:33)
[2018-09-24] MEDS ORDERED: fentaNYL 100 MCG/2 ML INJECTION (J3010) As Ordered ONE ×2 (11:08→12:33)
[2018-09-24] MEDS: fentaNYL 100 MCG/2 ML INJECTION (J3010) IV SCH ×2 (11:49→11:58)
[2018-09-24] MEDS: MIDAZOLAM INJ 2 MG/2 ML VIAL (J2250) IV SCH ×2 (11:49→11:57)
[2018-09-24] MEDS ORDERED: PROPOFOL 200 MG/20 ML VIAL As Ordered ONE ×2 (12:33→13:26)
[2018-09-24] MEDS ORDERED: BUPIVACAINE/DEXTROSE 0.75% 2 ML AMP As Ordered ONE (12:33)
[2018-09-24] MEDS ORDERED: PHENYLephrine HCL 500 MCG/5 ML (100MCG/ML) SYRINGE (J2370) As Ordered ONE (12:34)
[2018-09-24] MEDS ORDERED: PERCOCET 5MG/325MG TAB PO PRN (14:15)
[2018-09-24] MEDS ORDERED: LR 1,000 ML IV SCH (14:15)
[2018-09-24] MEDS ORDERED: ACETAMINOPHEN TAB 650MG DOSE (2X325MG) PO PRN (14:15)
[2018-09-24] MEDS ORDERED: fentaNYL 100 MCG/2 ML INJECTION (J3010) IV PRN (14:15)
[2018-09-24] MEDS ORDERED: HYDROMORPHONE HCL 0.5 MG/ 0.5 ML SYRINGE (J1170 PER 1) IV PRN (14:15)
[2018-09-24] MEDS ORDERED: ONDANSETRON 4MG/2ML VIAL (J2405) IV PRN ×2 (14:15)
[2018-09-24] MEDS ORDERED: FLEET ENEMA PR PRN (14:15)
[2018-09-24] MEDS ORDERED: MORPHINE 4 MG/ML 1ML VIAL/SYRINGE (J2270) IV PRN (14:15)
[2018-09-24] MEDS: LR 1,000 ML IV SCH (14:15)
--- NOTE | 2018-09-24 14:53 | REP ---
LEFT KNEE SERIES: TWO VIEWS. HISTORY: Postop. FINDINGS: Patient is status post left knee arthroplasty. Anterior skin teja are seen. The periarticular soft tissues show postoperative emphysema and swelling. IMPRESSION: Status post left knee arthroplasty. Electronically Signed by Berto Weaver MD 09/24/2018 03:24 P
[2018-09-24] MEDS: PERCOCET 5MG/325MG TAB PO PRN (17:56)
[2018-09-24] MEDS ORDERED: ALPRAZolam 0.25 MG TAB PO PRN (18:00)
[2018-09-24] MEDS: MORPHINE 4 MG/ML 1ML VIAL/SYRINGE (J2270) IV PRN ×2 (20:51→23:44)
[2018-09-24] MEDS ORDERED: AMITRIPTYLINE 50 MG TAB PO SCH (21:00)
--- NOTE | 2018-09-25 00:30 | CR ---
DATE OF CONSULTATION: 09/24/2018 This is a 67-year-old female, past medical history of hypertension, hyperlipidemia, anxiety disorder, history of left knee osteoarthritis, came to this hospitalization for elective left total knee replacement done successfully today. The reason for medical consultation is postoperative medical management. The patient denies any chest pain, shortness of breath, abdominal pain, nausea, vomiting, vertigo, headache. PAST MEDICAL HISTORY: Left knee osteoarthritis. Hyperlipidemia. Hypertension. Anxiety disorder. PAST SURGICAL HISTORY: Tubal ligation. Hysterectomy. Right knee surgery. ALLERGIES: She has no known drug allergies. She has an adverse drug reaction to CODEINE, which causes difficulty sleeping. FAMILY HISTORY: Noncontributory. SOCIAL HISTORY: The patient was a former smoker. Denies active tobacco abuse or alcohol or drug abuse. MEDICATIONS: She takes at home are as follows: - allopurinol 100 mg orally daily - alprazolam 0.25 mg orally three times a day as needed - amitriptyline 50 mg orally at bedtime - atorvastatin 40 mg orally daily - diphenhydramine 25 mg orally daily - esomeprazole 40 mg orally - Micardis one tablet orally daily at 80/12.5 - sertraline 100 mg orally daily - verapamil 240 mg orally daily REVIEW OF SYSTEMS: Negative all ten major systems except what has been mentioned in the history of the present illness. Vital Signs: Blood pressure is 151/68, heart rate is 82, regular, respiratory rate 18, temperature 98.3, oxygen saturation 94% on two liters nasal cannula. Head is atraumatic, normocephalic. Neck supple. No jugular venous distention (JVD). Lungs are clear to auscultation. S1, S2 audible, No murmurs appreciated. Abdomen: Soft, positive bowel sounds. No pedal edema. Skin: Intact. Neurologic Examination: Patient awake, alert, oriented times three. LABORATORY: There are no labs to review. IMPRESSION: 1. Left total knee replacement. 2. Hypertension. 3. Hyperlipidemia. PLAN: At this time, there is no active intervention needed medically. Will reconcile her preadmission medications. Do recommend morning BMP and CBC, and will defer pain management to orthopedics. Will continue following the patient's care alongside orthopedics.
[2018-09-25] MEDS: PERCOCET 5MG/325MG TAB PO PRN ×3 (01:28→13:44)
[2018-09-25 02:00] VITALS: BP 156/77
[2018-09-25] MEDS: LR 1,000 ML IV SCH (03:35)
[2018-09-25 06:00] VITALS: BP 167/86
[2018-09-25] MEDS ORDERED: ONDANSETRON 4 MG TAB (S0181) PO PRN (06:45)
[2018-09-25] MEDS ORDERED: PERCOCET 5MG/325MG TAB PO PRN (06:45)
[2018-09-25 07:00] LABS: HEMATOCRIT 32.3 % (36.0-47.0); HEMOGLOBIN 11.1 g/dl (12.0-15.5); MEAN CORPUSCULAR HEMOGLOBIN 31.4 pg (27.0-33.0); MEAN CORPUSCULAR HGB CONC 34.4 g/dl (32.0-36.5); MEAN CORPUSCULAR VOLUME 91.5 fl (80.0-96.0); PLATELET COUNT, AUTOMATED 234 10^3/uL (150-450); RED BLOOD COUNT 3.53 10^6/uL (4.00-5.40); WHITE BLOOD COUNT 8.5 10^3/uL (4.0-10.0)
--- NOTE | 2018-09-25 08:02 | RO ---
DATE OF PROCEDURE: 09/24/2018 PREOPERATIVE DIAGNOSIS: Left knee osteoarthritis. POSTOPERATIVE DIAGNOSIS: Left knee osteoarthritis. PROCEDURE: Left total knee arthroplasty using an Attune posterior stabilized rotating platform, size 4 femur size, 3 tibial tray, 8 polyethylene, 32 patellar button. SURGEON: Dr. Maury Hightower HOT SAW HELPER: Guerita Dillon ANESTHESIA: Spinal ESTIMATED BLOOD LOSS: Less than 50. COMPLICATIONS: None. INDICATIONS: This is a 67 year old woman who has had gradually worsening knee pain. She wished to go ahead with a knee replacement. She understood the nature of the procedure and the risks associated with it. DESCRIPTION OF PROCEDURE: The patient was taken to the operating room and placed in supine position after spinal anesthesia was induced. The left lower extremity was prepped and draped in the usual sterile fashion. A time out was performed. The tourniquet was inflated. I created a longitudinal incision over the anterior aspect of left knee and performed a medial parapatellar arthrotomy per routine. I everted the patella and flexed the knee up and used the canal initiating reamer followed by the intramedullary reamer set at 5 degrees of valgus and a 9 mm cut. This was pinned in place by the personalized living assistant and distal femoral cut was made while I protected soft tissues. I sized the femur to be a 4 and the pin holes were placed at the end of the femur and the external rotation guide had been used. The size 4 cutting block was then secured and the remaining cuts were made. I then prepared the tibia. The tibial alignment guide was placed in the appropriate amount of valgus and posterior slope. This was pinned in placed and I removed essentially 8 mm off the high side and removed the excess bone. The posterior stabilized knee was selected due to the fact that she had a valgus alignment. I used the box cutting device. This was secured in place and the remaining three cuts were removed the remaining of the excess bone and the posterior cruciate ligament (PCL). I then used a mixer operator hot metal to remove soft tissue and osteophytes from either side of the knee and selected the spacer blocks for trial and a size 8 seemed to be excellent stability and flexion/extension and the size 10 was definitely too tight in both. So I elected to go ahead with that. I then prepared the tibial surface, a size 3 tray fit very nicely. I drilled and broached and placed the trial components. I put the knee through a range of motion and was very pleased with the alignment, stability and soft tissue balance. I then freehand cut the patella removing about 6 mm of bone, it was a fairly thin patella. It sized to be a 32. The drill holes were placed. I put the trial button in and put the knee through a range of motion and the patella tracked very nicely. I then drilled the hole in the end of the femur and removed the trial components. The personalized living assistant prepared the bone cement in the modern technique. I irrigated the bony surfaces after the components were removed and dried them carefully. I also placed the Exparel solution in the deep tissues. Once the surfaces were carefully dried, I then cemented on the femoral and tibial components, removed excess bone cement and placed the polyethylene size 4 x 8 mm poly, put the knee out in near extension and cemented on the patella, removed the excess bone cement, and waited until this hardened. I also placed the TXA solution deep in the knee and the wound was very copiously irrigated. I then repaired the deep layer with #1 Vicryl suture followed by a running Stratafix suture obtaining a watertight closure. I then put the knee through a range of motion and was very pleased with the stability and the wound closure. I irrigated and closed the subcutaneous with #2-0 Vicryl and the skin with teja. Sterile dressing was applied. The tourniquet was deflated just prior to wound closure. The personalized living assistant was instrumental in holding retractors, making one of the bone cuts, assisting in wound closure, and mixing the cement.
[2018-09-25] MEDS ORDERED: PERC5TAB12 PO (08:39)
[2018-09-25] MEDS ORDERED: XARE10TA PO (08:39)
[2018-09-25] MEDS ORDERED: VERAPAMIL 120 MG SR TAB PO SCH (09:00)
[2018-09-25] MEDS ORDERED: diphenhydrAMINE 25 MG CAP PO SCH (09:00)
[2018-09-25] MEDS ORDERED: MIRALAX *UNIT DOSE* 17GM PACKET PO SCH (09:00)
[2018-09-25] MEDS ORDERED: MOM 30ML SUSPENSION UDC PO SCH (09:00)
[2018-09-25] MEDS ORDERED: ATORVASTATIN 20 MG TAB PO SCH (09:00)
[2018-09-25] MEDS ORDERED: SERTRALINE 100 MG TAB PO SCH (09:00)
[2018-09-25] MEDS ORDERED: ALLOPURINOL 100 MG TAB PO SCH (09:00)
[2018-09-25] MEDS ORDERED: TELMISARTAN 20 MG TAB PO SCH (09:00)
[2018-09-25 10:47] VITALS: BP 167/86
[2018-09-25] MEDS ORDERED: RIVAROXABAN 10 MG TAB (XARELTO) PO SCH (18:00)
[2018-09-26] MEDS ORDERED: PANTOPRAZOLE 40MG TAB (PROTONIX) PO SCH (09:00)
== END 2018-09-25 14:10 | disposition home health service (06) | DRG 470 ==
LOC: M OR 09-24 09:37 → M MS5PR 09-24 14:50
PROVIDERS: ADMIT Orthopaedic Surgery; ATTEND Orthopaedic Surgery
PROC: 0SRD0J9 Replacement of Left Knee Joint with Synthetic Substitute, Cemented, Open Approach (ICD-10-PCS; principal; 2018-09-24 11:30)
DX: M17.12 Unilateral primary osteoarthritis, left knee (principal); E78.00 Pure hypercholesterolemia, unspecified; I10 Essential (primary) hypertension; F41.9 Anxiety disorder, unspecified; Z79.899 Other long term (current) drug therapy; Z88.5 Allergy status to narcotic agent; Z85.42 Personal history of malignant neoplasm of other parts of uterus; Z90.710 Acquired absence of both cervix and uterus; Z87.891 Personal history of nicotine dependence; Z96.651 Presence of right artificial knee joint

== ENCOUNTER → 2018-09-04 | Outpatient (CLI) | payer MEDICARE, OTHER ==
--- NOTE | 2018-09-04 10:24 | ECGEPIP ---
Stationary ECG Study [facility] Test Date: 2018-09-04 Pat Name: SHUBHAM ESCOBAR Department: Room: - Gender: F Skip Tender: : 1950 Requested By: Maury Hightower Order Number: [id number] Reading MD: Helen Randolph Measurements Intervals [place] Rate: 78 P: 46 [place]: 161 QRS: 14 QRSD: 87 T: 35 QT: 369 QTc: 421 Interpretive Statements SINUS RHYTHM PRIOR WITH BODERLINE 1ST DEGREE BLOCK Electronically Signed On 09-04-2018 10:23:55 EST by Helen Randolph
[2018-09-04 10:45] LABS: HEMATOCRIT 38.7 % (36.0-47.0); HEMOGLOBIN 13.5 g/dl (12.0-15.5); MEAN CORPUSCULAR HEMOGLOBIN 32.3 pg (27.0-33.0); MEAN CORPUSCULAR HGB CONC 34.9 g/dl (32.0-36.5); MEAN CORPUSCULAR VOLUME 92.6 fl (80.0-96.0); PLATELET COUNT, AUTOMATED 228 10^3/uL (150-450); RED BLOOD COUNT 4.18 10^6/uL (4.00-5.40); WHITE BLOOD COUNT 4.7 10^3/uL (4.0-10.0)
[2018-09-04 10:58] LABS: INR 0.99; PROTHROMBIN TIME 13.2 SECONDS (12.1-14.4)
[2018-09-04 11:11] LABS: ALBUMIN 4.1 GM/DL (3.2-5.2); ALT/SGPT 44 U/L (12-78); BILIRUBIN,TOTAL 0.4 MG/DL (0.2-1.0); BLOOD UREA NITROGEN 11 MG/DL (7-18); CALCIUM LEVEL 9.5 MG/DL (8.8-10.2); CARBON DIOXIDE LEVEL 28 MEQ/L (21-32); CHLORIDE LEVEL 100 MEQ/L (98-107); CREATININE FOR GFR 0.64 MG/DL (0.55-1.30); GLOMERULAR FILTRATION RATE > 60.0 (>45); GLUCOSE, FASTING 102 MG/DL (70-100); POTASSIUM SERUM 4.3 MEQ/L (3.5-5.1); SODIUM LEVEL 136 MEQ/L (136-145); TOTAL PROTEIN 7.5 GM/DL (6.4-8.2)
[2018-09-04 11:16] LABS: ERYTHROCYTE SEDIMENTATION RATE 47 mm/hr (0-30)
--- NOTE | 2018-09-04 11:37 | REP ---
Chest two views HISTORY: Left knee arthritis Comparison: 12/26/2016 The lungs are clear. The heart is normal in size. The pulmonary vasculature is normal in appearance. The bony structure is intact. IMPRESSION: No acute disease. Electronically Signed by Gustavo Rae MD 09/04/2018 11:28 A
== END ==
LOC: M LAB 09:49
PROVIDERS: ATTEND Orthopaedic Surgery
DX: Z01.818 Encounter for other preprocedural examination (principal); M17.12 Unilateral primary osteoarthritis, left knee

== ENCOUNTER 2018-11-28 08:38 | Inpatient (IN) | payer MEDICARE, OTHER ==
[~2018-11-28] VITALS: Ht 157.5 cm; Wt 81.0 kg
[~2018-11-28 08:38] MED LIST changes: -/ESOM40CA; -/WARF25TA; +COUM1TAB18; +KEFL500C17 PO; +NEXI1CAP3; +NEXI40CA PO; +PERC5TAB12 PO; +VITA400C7 PO; +XARE10TA PO
[2018-11-28] MEDS: NITROGLYCERIN 0.4 MG SUBL TABLET SL PRN ×3 (08:56→09:36)
[2018-11-28] MEDS ORDERED: ASPIRIN 81 MG CHEW TABLET PO ONE (09:00)
[2018-11-28 09:25] LABS: BASO % 0.4 % (0.0-1.0); EOS % 0.5 % (0.0-3.0); HEMATOCRIT 35.9 % (36.0-47.0); HEMOGLOBIN 12.3 g/dl (12.0-15.5); LYMPH # 1.4 10^3/uL (1.5-4.5); LYMPH % 18.4 % (24.0-44.0); MEAN CORPUSCULAR HEMOGLOBIN 30.9 pg (27.0-33.0); MEAN CORPUSCULAR HGB CONC 34.3 g/dl (32.0-36.5); MEAN CORPUSCULAR VOLUME 90.2 fl (80.0-96.0); MONO # 0.6 10^3/uL (0.0-0.8); MONO % 8.3 % (0.0-5.0); NEUTROPHILS # 5.3 10^3/uL (1.8-7.7); NEUTROPHILS % 72.1 % (36.0-66.0); PLATELET COUNT, AUTOMATED 200 10^3/uL (150-450); RED BLOOD COUNT 3.98 10^6/uL (4.00-5.40); WHITE BLOOD COUNT 7.3 10^3/uL (4.0-10.0)
--- NOTE | 2018-11-28 09:37 | REP ---
CHEST, TWO VIEWS: COMPARISON: 09/04/2018 There is no evidence of acute infiltrate. No pleural effusion is seen. The heart is normal in size. The mediastinal silhouette is unremarkable. The visualized osseous structures are intact. There is mild calcification of the thoracic aorta. There are mild degenerative changes of the spine. IMPRESSION: No acute pulmonary disease. Electronically Signed by Ramone Fung MD 11/28/2018 03:35 P
[2018-11-28 09:46] LABS: INR 0.94; PROTHROMBIN TIME 12.7 SECONDS (12.1-14.4)
--- NOTE | 2018-11-28 09:47 | REP ---
Bilateral lower extremity Duplex Doppler venous ultrasound: Real time compression and duplex Doppler interrogation of the bilateral lower extremity deep venous system is performed. Bilaterally, the common femoral, superficial femoral and popliteal veins are fully compressible with transducer pressure and demonstrate normal spontaneous and phasic flow, without evidence of deep venous thrombosis. Impression: No evidence of deep venous thrombosis of the bilateral lower extremity femoral popliteal venous system. Electronically Signed by Ramone Fung MD 11/28/2018 09:38 A
[2018-11-28 09:54] LABS: ALBUMIN 3.7 GM/DL (3.2-5.2); ALT/SGPT 27 U/L (12-78); BILIRUBIN,DIRECT < 0.1 MG/DL (0.0-0.2); BILIRUBIN,TOTAL 0.4 MG/DL (0.2-1.0); BLOOD UREA NITROGEN 8 MG/DL (7-18); CALCIUM LEVEL 8.6 MG/DL (8.8-10.2); CARBON DIOXIDE LEVEL 29 MEQ/L (21-32); CHLORIDE LEVEL 105 MEQ/L (98-107); CPK CREATINE PHOSPHOKINASE 73 U/L (26-192); CREATININE FOR GFR 0.67 MG/DL (0.55-1.30); FREE T4 0.76 NG/DL (0.76-1.46); GLOMERULAR FILTRATION RATE > 60.0 (>45); GLUCOSE, FASTING 115 MG/DL (70-100); LIPASE 99 U/L (73-393); MB/CK RELATIVE INDEX 2.05 (< OR =4); POTASSIUM SERUM 3.6 MEQ/L (3.5-5.1); SODIUM LEVEL 138 MEQ/L (136-145); TOTAL PROTEIN 7.2 GM/DL (6.4-8.2); TROPONIN I < 0.02 NG/ML (< 0.10)
[2018-11-28] MEDS ORDERED: ISOVUE-370 76% 100ML VIAL (Q9967) As Ordered ONE (10:05)
[2018-11-28] MEDS ORDERED: GI COCKTAIL 50ML BTL(HYOSCYAMINE/MAALOX/LIDOCAINE VISCOUS)(1:3:1) PO ONE (10:15)
--- NOTE | 2018-11-28 11:01 | REP ---
CT ANGIOGRAM CHEST: TECHNIQUE: Axial contrast enhanced images from the thoracic inlet to the upper abdomen using 100 mL Isovue 370 intravenous contrast material with multiplanar reformations. There is no CT evidence of pulmonary embolism. There is no thoracic aortic aneurysm or dissection. Aberrant right subclavian artery is incidentally noted. There is no mediastinal, hilar or chest wall lymphadenopathy. The heart is normal in size. There is no pleural or pericardial effusion. There is a small area of consolidative atelectasis or infiltrate in the right lower lobe laterally along the diaphragm. There is also some mild patchy atelectasis or infiltrate in the posterior right calcified sulcus. Mild fibroatelectatic change is seen in the left lower lobe. There are degenerative changes of the spine. IMPRESSION: No evidence of pulmonary embolism or aortic dissection. Mild right lower lobe atelectasis/infiltrate. Electronically Signed by Ramone Fung MD 11/28/2018 03:39 P
[2018-11-28] MEDS ORDERED: cefTRIAXone SOD 1 GM in D5W MINI-BAG PLUS 50 ML IV ONE (11:15)
[2018-11-28] MEDS ORDERED: IPRATROPIUM 0.5MG/ALBUTEROL 2.5MG INH SOL UD 3ML (DUONEB)(J7620) NEB ONE (11:15)
[2018-11-28] MEDS ORDERED: AZITHROMYCIN INJ 500 MG, VIAL MATE ADAPTER 1 EACH in D5W 250 ML IV ONE (11:15)
[2018-11-28] MEDS ORDERED: LORA-674 PO (11:53)
[2018-11-28] MEDS ORDERED: IPRATROPIUM 0.5MG/ALBUTEROL 2.5MG INH SOL UD 3ML (DUONEB)(J7620) INH PRN (12:15)
[2018-11-28] MEDS ORDERED: MORPHINE 2 MG/ML 1ML SYRINGE (J2270) As Ordered ONE (12:58)
[2018-11-28] MEDS ORDERED: ACETAMINOPHEN TAB 650MG DOSE (2X325MG) PO PRN (13:00)
[2018-11-28 13:04] LABS: INFLUENZA A AMPLIFICATION NEGATIVE (NEGATIVE); INFLUENZA B AMPLIFICATION NEGATIVE (NEGATIVE)
[2018-11-28] MEDS: ALPRAZolam 0.25 MG TAB PO PRN ×2 (13:04→21:46)
[2018-11-28] MEDS ORDERED: MORPHINE 2 MG/ML 1ML SYRINGE (J2270) IV ONE (13:15)
--- NOTE | 2018-11-28 13:23 | HPEPDOC ---
[facility] Medical History & Physical Date of Admission November 28, 2018 History and Physical CHIEF COMPLAINT: [Chest pain and cough] HISTORY OF PRESENT ILLNESS: [68-year-old female with significant past medical history of osteoarthritis, hypercholesterolemia, hypertension, anxiety, GERD who presented complaining of chest pain and cough. Patient is a former smoker but does not utilize any inhalers at home. Patient had some shortness of breath associated with pain and cough. Chest pain is located on the left side radiating to the back, associated with shortness of breath. Patient saturated well on room air in the emergency room. Patient incidentally inform me that she had a stomach virus that started this past Monday and lasted until yesterday. Patient denies of any recent antibiotic use, denies of any fever, denies of any dysuria. Patient states that her cough is at nighttime. She is exposed to the hometown who seems to have a stomach bug. Patient was evaluated in the emergency room, an EKG did not show any ST elevation and troponin was negative. Patient was status chest x-ray which was negative for any acute disease. She also had CT of the chest which showed no PE or dissection but this show mild right lower lobe atelectasis/infiltrate. Patient also had lower extremity Doppler which was negative for DVT. Patient is being admitted for right-sided pneumonia and chest pain. Also to note patient recently had a left knee surgery in September 2018 roughly 8 weeks ago. Patient is able to ambulate on her knee and currently not on any narcotic pain medication. PAST MEDICAL HISTORY: Osteoarthritis, Hypercholesteremia, Hypertension, Anxiety, GERD PAST SURGICAL HISTORY: Tubal ligation Hysterectomy for uterine cancer Right knee surgery Left knee with correction SOCIAL HISTORY: Patient denies of alcohol abuse but drinks alcohol daily, former smoker, denies of any IV drug abuse FAMILY HISTORY: Positive for heart disease, hypertension, arthritis, lymphoma, gastrointestinal upset, GA, alcoholism ALLERGIES: Please see below. REVIEW OF SYSTEMS: 12 point review systems negative other than those described in [facility] HOME MEDICATIONS: Please see below. PHYSICAL EXAMINATION: VITAL SIGNS: Please see below GENERAL APPEARANCE: Resting comfortably, chest pain repeat EKG negative for ST elevation HEENT: Normocephalic, PERRLA, Mucous moist, CARDIOVASCULAR: S1,S2, pulse present, regularly, regular LUNGS: Equal air entry b/l, no wheezes or crackle ABDOMEN: Soft, BS present, no tenderness, no guarding EXTREMITIES: B/L no edema, capillary refill present SKIN: Warm, No fever NEUROLOGICAL: Cranial nerves grossly intact PSYCHIATRIC: Normal mood and affect for current situation LABORATORY DATA: See below. IMAGING: [ Cxr: No acute pulmonary disease. LE Doppler: b/l neg for DVT CTA chest: No evidence of pulmonary embolism or aortic dissection. Mild right lower lobe atelectasis/infiltrate.] MICROBIOLOGY: Please see below. Assessment and plan: 68-year-old female with significant past medical history of osteoarthritis, hypercholesterolemia, hypertension, anxiety, GERD who presented complaining of chest pain and cough. Right-sided pneumonia, possible viral, ?aspiration -Azithromycin, Rocephin -Respiratory treatment -Oxygen as needed -History of former smoker -Cxr: No acute pulmonary disease. -CTA chest: No evidence of pulmonary embolism or aortic dissection. Mild right lower lobe atelectasis/infiltrate -Blood culture pending -Influenza A and B negative -Urine Legionella -Urine strep pneumonia -Sputum culture -swallow eval; further judicously ask about ETOH consumption habit Chest pain, atypical -Serial cardiac enzyme -supportive treatment -Telemetry -Echocardiogram -BNP -LE Doppler: b/l neg for DVT Diarrhea, suspect viral -GI panel -IV fluid PRN osteoarthritis -History of left knee surgery 8 weeks ago Hypercholesterolemia -statin Hypertension -hold telmisartan/HCTZ to avoid cough and dehydration -started norvasc for now Anxiety -resume medication GERD -resume esomeprazole DVT prop with Lovenox Vital Signs Vital Signs Date Time Temp Pulse Resp B/P (MAP) Pulse Ox O2 Delivery O2 Flow Rate FiO2 11/28/18 10:00 94 16 158/73 (101) 96 Room Air 11/28/18 08:39 97.8 Laboratory Data Labs 24H Laboratory Tests 2 11/28/18 09:05: Immature Granulocyte % (Auto) 0.3, White Blood Count 7.3, Red Blood Count 3.98L, Hemoglobin 12.3, Hematocrit 35.9L, Mean Corpuscular Volume 90.2, Mean Corpuscular Hemoglobin 30.9, Mean Corpuscular Hemoglobin Concent 34.3, Red Cell Distribution Width 11.6, Platelet Count 200, Neutrophils (%) (Auto) 72.1H, Lymphocytes (%) (Auto) 18.4L, Monocytes (%) (Auto) 8.3H, Eosinophils (%) (Auto) 0.5, Basophils (%) (Auto) 0.4, Neutrophils # (Auto) 5.3, Lymphocytes # (Auto) 1.4L, Monocytes # (Auto) 0.6, Eosinophils # (Auto) 0.0, Basophils # (Auto) 0.0, Nucleated Red Blood Cells % (auto) 0.0, Prothrombin Time 12.7, Prothromb Time International Ratio 0.94, Activated Partial Thromboplast Time 20.0L, Anion Gap 4L, Glomerular Filtration Rate > 60.0, Calcium Level 8.6L, Aspartate Amino Transf (AST/SGOT) 18, Alanine Aminotransferase (ALT/SGPT) 27, Alkaline Phosphatase 82, Total Bilirubin 0.4, Direct Bilirubin < 0.1, Total Creatine Kinase 73, Creatine Kinase MB 2.0, Creatine Kinase MB Relative Index 2.05, Troponin I < 0.02, Total Protein 7.2, Albumin 3.7, Albumin/Globulin Ratio 1.06, Lipase 99, Thyroid Stimulating Hormone (TSH) 1.950, Free Thyroxine 0.76 11/28/18 12:27: CBC/BMP Laboratory Tests 11/28/18 09:05 Red Blood Count 3.98 L, Mean Corpuscular Volume 90.2, Mean Corpuscular Hemoglobin 30.9, Mean Corpuscular Hemoglobin Concent 34.3, Red Cell Distribution Width 11.6, Neutrophils (%) (Auto) 72.1 H, Lymphocytes (%) (Auto) 18.4 L, Monocytes (%) (Auto) 8.3 H, Eosinophils (%) (Auto) 0.5, Basophils (%) (Auto) 0.4, Neutrophils # (Auto) 5.3, Lymphocytes # (Auto) 1.4 L, Monocytes # (Auto) 0.6, Eosinophils # (Auto) 0.0, Basophils # (Auto) 0.0 Microbiology Microbiology 11/28/18 Blood Culture, Received Pending 11/28/18 Blood Culture, Received Pending Home Medications Scheduled Allopurinol (Allopurinol) 100 Mg Tab, 100 MG PO DAILY Amitriptyline HCl (Amitriptyline HCl) 50 Mg Tab, 50 MG PO QHS Atorvastatin Calcium (Atorvastatin Calcium) 40 Mg Tab, 40 MG PO DAILY Esomeprazole Magnesium (Nexium) 40 Mg Cap, 40 MG PO Q2D Loratadine (Loratadine) 10 Mg Tablet, 10 MG PO DAILY Sertraline HCl (Sertraline HCl) 100 Mg Tab, 150 MG PO DAILY Telmisartan/Hydrochlorothiazid (Micardis Hct 80-12.5 mg Tablet) 1 Tab Tab, 1 TAB PO DAILY Verapamil Hcl (Calan Sr) 240 Mg Tab, 240 MG PO DAILY Scheduled PRN Alprazolam (Alprazolam) 0.25 Mg Tab, 0.25 MG PO TID PRN for ANXIETY Allergies Coded Allergies: Milk Containing Products (Verified Allergy, Unknown, 11/28/18) lactose (Verified Allergy, Unknown, 11/28/18) codeine (Verified Adverse Reaction, Mild, SHAKY, HYPER, 11/28/18) erythromycin base (Verified Adverse Reaction, Mild, UPSET STOMACH, 11/28/18) lisinopril (Verified Adverse Reaction, Mild, COUGH, 11/28/18) LESLEE HOLLOWAY MD November 28, 2018 13:23
[2018-11-28 14:30] VITALS: BP 140/68
[2018-11-28 15:27] LABS: CK-MB VALUE MASS < 1.0 NG/ML (<3.6); CPK CREATINE PHOSPHOKINASE 87 U/L (26-192); MB/CK RELATIVE INDEX 1.15 (< OR =4)
[2018-11-28] MEDS: ATORVASTATIN 20 MG TAB PO SCH (15:49)
[2018-11-28] MEDS: ONDANSETRON 4MG/2ML VIAL (J2405) IV PRN (15:49)
[2018-11-28] MEDS: VERAPAMIL 120 MG SR TAB PO SCH (15:50)
[2018-11-28] MEDS: LORATADINE 10 MG TAB PO SCH (15:50)
[2018-11-28] MEDS: amLODIPine 5 MG TAB PO SCH (15:50)
[2018-11-28] MEDS: SERTRALINE HCL 50 MG TAB PO SCH (15:50)
[2018-11-28] MEDS: ENOXAPARIN 40 MG/0.4 ML SYRINGE (J1650) SC SCH (15:51)
[2018-11-28] MEDS: ALLOPURINOL 100 MG TAB PO SCH (15:51)
--- NOTE | 2018-11-28 18:04 | NUR ---
There were no overt signs of aspiration during bedside swallow assessment. However, patient reported swallowing difficulties. She stated that she has significant difficulty swallowing pills and that she often feels like food/liquid "goes down the wrong tube" when eating/drinking. She also reported that she has significant esophageal difficulties. Due to reported swallowing history and diagnosis of pneumonia, ST recommends a MBS to assess for silent aspiration. Addendum: 11/28/18 at 1806 by OWEN CANDELARIA Amended: Links added.
[2018-11-28] MEDS ORDERED: NITROGLYCERIN 0.2 MG/HR PATCH TOP ONE (20:15)
--- NOTE | 2018-11-28 20:19 | ECHO ---
DATE OF PROCEDURE: 11/28/2018 AGE: 68 GENDER: Female HEIGHT: 62 inches WEIGHT: 178 pounds BODY SURFACE AREA: 1.82 m2 PATIENT LOCATION: Inpatient, [address] [place] [address], room 4220 REFERRING PHYSICIAN: Deisi Dumont MD INDICATION: Dyspnea. 2-D MEASUREMENTS: RV: 3.3 cm LV: 3.7 cm Septum: 0.9 cm Posterior wall: 0.9 cm Aortic root: 3.0 cm LA: 2.7 cm LVEF: 75% DOPPLER MEASUREMENTS: AV: 1.7 m/s LVOT: 0.84 m/s LVOT diameter: 1.9 cm MV-E: 85, A: 110, EA ratio: 0.8 Early mitral deceleration time: 169 ms E prime: 8.7, A prime: 13.5, E/E prime ratio: 9.8 PCWP: 13.3 mmHg PV: 0.85 m/s Pulmonary artery acceleration time: 102 ms RVSP: 35 mmHg IVC: 1.4 cm COMMENTS: Sinus tachycardia without intraventricular conduction disturbance. M-mode and two-dimensional echocardiography was performed with pulsed, continuous wave, color flow and tissue Doppler studies. Normal left ventricular size, wall thickness and hyperkinetic wall motion. Normal left atrial size with Doppler evidence suggesting a degree of LV diastolic dysfunction with current estimated mean left atrial pressure upper limits of normal. Normal right heart chamber sizes and motion with current Doppler findings suggesting borderline to slightly elevated pulmonary arterial pressure with the rapid rate. Normal IVC size and collapse against an elevated central venous pressure. Normal appearing and functioning valvular structures. No apparent intracardiac mass or pericardial effusion.
--- NOTE | 2018-11-28 20:28 | ECGEPIP ---
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
--- NOTE | 2018-11-28 20:33 | ECGEPIP ---
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
[2018-11-28] MEDS ORDERED: AMITRIPTYLINE 50 MG TAB PO SCH (21:00)
[2018-11-28] MEDS ORDERED: **NOTE PATIENT COMMENT** MISC XX SCH (21:00)
[2018-11-28 21:30] LABS: CK-MB VALUE MASS < 1.0 NG/ML (<3.6); CPK CREATINE PHOSPHOKINASE 65 U/L (26-192); MB/CK RELATIVE INDEX 1.54 (< OR =4); TROPONIN I < 0.02 NG/ML (< 0.10)
[2018-11-28 21:40] VITALS: BP 142/65
[2018-11-28 22:00] VITALS: BP 148/66
[2018-11-29] MEDS ORDERED: MORPHINE 4 MG/ML 1ML VIAL/SYRINGE (J2270) IV ONE (02:00)
[2018-11-29] MEDS: ONDANSETRON 4MG/2ML VIAL (J2405) IV PRN (02:05)
[2018-11-29 03:40] LABS: CK-MB VALUE MASS < 1.0 NG/ML (<3.6); CPK CREATINE PHOSPHOKINASE 67 U/L (26-192); MB/CK RELATIVE INDEX 1.49 (< OR =4)
[2018-11-29 06:00] VITALS: BP 138/70
[2018-11-29 06:25] LABS: HEMATOCRIT 33.2 % (36.0-47.0); HEMOGLOBIN 10.9 g/dl (12.0-15.5); MEAN CORPUSCULAR HEMOGLOBIN 30.8 pg (27.0-33.0); MEAN CORPUSCULAR HGB CONC 32.8 g/dl (32.0-36.5); MEAN CORPUSCULAR VOLUME 93.8 fl (80.0-96.0); PLATELET COUNT, AUTOMATED 182 10^3/uL (150-450); RED BLOOD COUNT 3.54 10^6/uL (4.00-5.40); WHITE BLOOD COUNT 6.6 10^3/uL (4.0-10.0)
[2018-11-29 06:43] LABS: BLOOD UREA NITROGEN 5 MG/DL (7-18); CALCIUM LEVEL 8.6 MG/DL (8.8-10.2); CARBON DIOXIDE LEVEL 29 MEQ/L (21-32); CHLORIDE LEVEL 100 MEQ/L (98-107); CREATININE FOR GFR 0.64 MG/DL (0.55-1.30); GLOMERULAR FILTRATION RATE > 60.0 (>45); GLUCOSE, FASTING 132 MG/DL (70-100); POTASSIUM SERUM 3.5 MEQ/L (3.5-5.1); SODIUM LEVEL 135 MEQ/L (136-145)
[2018-11-29] MEDS: SERTRALINE HCL 50 MG TAB PO SCH (08:20)
[2018-11-29] MEDS: ALLOPURINOL 100 MG TAB PO SCH (08:21)
[2018-11-29 08:24] VITALS: BP 133/73
[2018-11-29] MEDS: amLODIPine 5 MG TAB PO SCH (08:24)
[2018-11-29] MEDS: ATORVASTATIN 20 MG TAB PO SCH (08:24)
[2018-11-29] MEDS: ENOXAPARIN 40 MG/0.4 ML SYRINGE (J1650) SC SCH (08:25)
[2018-11-29] MEDS: LORATADINE 10 MG TAB PO SCH (08:25)
[2018-11-29] MEDS: VERAPAMIL 120 MG SR TAB PO SCH (08:32)
[2018-11-29] MEDS ORDERED: **NOTE PATIENT COMMENT** MISC XX SCH (09:00)
[2018-11-29] MEDS ORDERED: cefTRIAXone SOD 2 GM in D5W MINI-BAG PLUS 50 ML IV SCH (11:00)
[2018-11-29] MEDS ORDERED: AZITHROMYCIN INJ 500 MG, VIAL MATE ADAPTER 1 EACH in D5W 250 ML IV SCH (12:00)
[2018-11-29] MEDS ORDERED: LEVA750T7 PO (12:58)
--- NOTE | 2018-11-29 13:18 | DS.PDOC ---
Discharge Summary General Date of Admission November 28, 2018 at 12:08 Date of Discharge 11/29/18 Discharge Summary PROCEDURES PERFORMED DURING STAY: [None]. ADMITTING DIAGNOSES: Right-sided pneumonia, possible viral, ?aspiration Chest pain, atypical Diarrhea, suspect viral osteoarthritis Hypercholesterolemia Hypertension Anxiety GERD DISCHARGE DIAGNOSES: Right-sided pneumonia, possible viral, ?aspiration Chest pain, atypical Diarrhea, suspect viral osteoarthritis Hypercholesterolemia Hypertension Anxiety GERD COMPLICATIONS/CHIEF COMPLAINT: Chest Pain Pneumonia. HISTORY OF PRESENT ILLNESS: [68-year-old female with significant past medical history of osteoarthritis, hypercholesterolemia, hypertension, anxiety, GERD who presented complaining of chest pain and cough. Patient is a former smoker but does not utilize any inhalers at home. Patient had some shortness of breath associated with pain and cough. Chest pain is located on the left side radiating to the back, associated with shortness of breath. Patient saturated well on room air in the emergency room. Patient incidentally inform me that she had a stomach virus that started this past Monday and lasted until yesterday. Patient denies of any recent antibiotic use, denies of any fever, denies of any dysuria. Patient states that her cough is at nighttime. She is exposed to the hometown who seems to have a stomach bug. Patient was evaluated in the emergency room, an EKG did not show any ST elevation and troponin was negative. Patient was status chest x-ray which was negative for any acute disease. She also had CT of the chest which showed no PE or dissection but this show mild right lower lobe atelectasis/infiltrate. Patient also had lower extremity Doppler which was negative for DVT. Patient is being admitted for right-sided pneumonia and chest pain. Also to note patient recently had a left knee surgery in September 2018 roughly 8 weeks ago. Patient is able to ambulate on her knee and currently not on any narcotic pain medication. ]. HOSPITAL COURSE: [68-year-old female with significant past medical history of osteoarthritis, hypercholesterolemia, hypertension, anxiety, GERD who presented complaining of chest pain and cough. Patient treated for Right sided pneumonia. See treatments below. Influenza negative for A/B. With history of diarrhea prior to right PNA, suspect viral. No stool for GI panel. Patient vitally stable and not requiring oxygen on RA. Generalized body ache requiring morphine IV, encouraged non-narcotic medication use. Patient tolerating PO intake without difficulty. Levaquin prescribed to covered for CAP. Please follow up with PCP within 1 week. Please follow PCP for blood culture result. Right-sided pneumonia, suspect viral -Azithromycin, Rocephin; prescribed Levaquin -Respiratory treatment -Oxygen as needed, not required -History of former smoker -Cxr: No acute pulmonary disease. -CTA chest: No evidence of pulmonary embolism or aortic dissection. Mild right lower lobe atelectasis/infiltrate -Blood culture pending -Influenza A and B negative Chest pain, atypical -Serial cardiac enzyme negative -supportive treatment -Telemetry -Echocardiogram:Sinus tachycardia without intraventricular conduction disturbance. M-mode and two-dimensional echocardiography was performed with pulsed, continuous wave, color flow and tissue Doppler studies. Normal left ventricular size, wall thickness and hyperkinetic wall motion. Normal left atrial size with Doppler evidence suggesting a degree of LV diastolic dysfunction with current estimated mean left atrial pressure upper limits of normal. Normal right heart chamber sizes and motion with current Doppler findings suggesting borderline to slightly elevated pulmonary arterial pressure with the rapid rate. Normal IVC size and collapse against an elevated central venous pressure. Normal appearing and functioning valvular structures. No apparent intracardiac mass or pericardial effusion. -BNP 278 -LE Doppler: b/l neg for DVT Diarrhea, suspect viral -GI panel: no stool available for collection -IV fluid PRN osteoarthritis -History of left knee surgery 8 weeks ago Hypercholesterolemia -statin Hypertension -resume telmisartan/HCTZ Anxiety -resume medication GERD -resume esomeprazole]. DISCHARGE MEDICATIONS: Please see below. ALLERGIES: Please see below. PHYSICAL EXAMINATION ON DISCHARGE: VITAL SIGNS: Please see below GENERAL APPEARANCE: Sitting on bed, ate breakfast without difficulty HEENT: Normocephalic, PERRLA, Mucous moist, CARDIOVASCULAR: S1,S2, pulse present, regularly, regular LUNGS: Equal air entry b/l, no wheezes or crackle ABDOMEN: Soft, BS present, no tenderness, no guarding EXTREMITIES: B/L no edema, capillary refill present SKIN: Warm, No fever NEUROLOGICAL: Cranial nerves grossly intact PSYCHIATRIC: Normal mood and affect for current situation LABORATORY DATA: Please see below. IMAGING: [ Cxr: No acute pulmonary disease. LE Doppler: b/l neg for DVT CTA chest: No evidence of pulmonary embolism or aortic dissection. Mild right lower lobe atelectasis/infiltrate.] PROGNOSIS: [stable] ACTIVITY: [As tolerated]. DIET: [low salt diet] DISPOSITION:Home . DISCHARGE CONDITION: [Stable]. TIME SPENT ON DISCHARGE: Greater than [40] minutes. Vital Signs/I&Os Vital Signs Date Time Temp Pulse Resp B/P (MAP) Pulse Ox O2 Delivery O2 Flow Rate FiO2 11/29/18 08:24 92 133/73 11/29/18 06:00 98.7 18 91 11/28/18 14:00 Room Air I&O- Last 24 Hours up to 6 AM 11/29/18 06:00 Intake Total 1085 ml Output Total 1700 ml Balance -615 ml Laboratory Data Labs 24H Laboratory Tests 2 11/28/18 14:48: Total Creatine Kinase 87, Creatine Kinase MB < 1.0, Creatine Kinase MB Relative Index 1.15 11/28/18 20:37: Total Creatine Kinase 65, Creatine Kinase MB < 1.0, Creatine Kinase MB Relative Index 1.54, Troponin I < 0.02 11/29/18 02:56: Total Creatine Kinase 67, Creatine Kinase MB < 1.0, Creatine Kinase MB Relative Index 1.49 11/29/18 06:01: Nucleated Red Blood Cells % (auto) 0.0, Anion Gap 6L, Glomerular Filtration Rate > 60.0, Blood Urea Nitrogen 5L, Creatinine 0.64, Sodium Level 135L, Potassium Level 3.5, Chloride Level 100, Carbon Dioxide Level 29, Calcium Level 8.6L CBC/BMP Laboratory Tests 11/29/18 06:01 Red Blood Count 3.54 L, Mean Corpuscular Volume 93.8, Mean Corpuscular Hemoglobin 30.8, Mean Corpuscular Hemoglobin Concent 32.8, Red Cell Distribution Width 11.9, Calcium Level 8.6 L Microbiology Microbiology 11/28/18 Blood Culture - Preliminary, Resulted No growth after 24 hours . All specim... 11/28/18 Blood Culture - Preliminary, Resulted No growth after 24 hours . All specim... Discharge Medications Scheduled Allopurinol (Allopurinol) 100 Mg Tab, 100 MG PO DAILY, (Reported) Amitriptyline HCl (Amitriptyline HCl) 50 Mg Tab, 50 MG PO QHS, (Reported) Atorvastatin Calcium (Atorvastatin Calcium) 40 Mg Tab, 40 MG PO DAILY, (Reported) Esomeprazole Magnesium (Nexium) 40 Mg Cap, 40 MG PO Q2D, (Reported) Levofloxacin (Levaquin) 750 Mg Tablet, 750 MG PO DAILY Loratadine (Loratadine) 10 Mg Tablet, 10 MG PO DAILY, (Reported) Sertraline HCl (Sertraline HCl) 100 Mg Tab, 150 MG PO DAILY, (Reported) Telmisartan/Hydrochlorothiazid (Micardis Hct 80-12.5 mg Tablet) 1 Tab Tab, 1 TAB PO DAILY, (Reported) Verapamil Hcl (Calan Sr) 240 Mg Tab, 240 MG PO DAILY, (Reported) Scheduled PRN Alprazolam (Alprazolam) 0.25 Mg Tab, 0.25 MG PO TID PRN for ANXIETY, (Reported) Allergies Coded Allergies: Milk Containing Products (Verified Allergy, Unknown, 11/28/18) lactose (Verified Allergy, Unknown, 11/28/18) codeine (Verified Adverse Reaction, Mild, SHAKY, HYPER, 11/28/18) erythromycin base (Verified Adverse Reaction, Mild, UPSET STOMACH, 11/28/18) lisinopril (Verified Adverse Reaction, Mild, COUGH, 11/28/18) LESLEE HOLLOWAY MD November 29, 2018 13:18
[2018-11-30] MEDS ORDERED: PANTOPRAZOLE 40MG TAB (PROTONIX) PO SCH (09:00)
--- NOTE | 2018-11-30 23:39 | ECGEPIP ---
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
== END 2018-11-29 13:37 | disposition home or self-care (01) | DRG 195 ==
LOC: M ED 08:38 → M ED INP 12:08 → M MSPAV 14:34
PROVIDERS: ADMIT Internal Medicine; ATTEND Internal Medicine
DX: J12.9 Viral pneumonia, unspecified (principal); R07.89 Other chest pain; A08.4 Viral intestinal infection, unspecified; I10 Essential (primary) hypertension; E78.00 Pure hypercholesterolemia, unspecified; M19.90 Unspecified osteoarthritis, unspecified site; F41.9 Anxiety disorder, unspecified; K21.9 Gastro-esophageal reflux disease without esophagitis; Z87.891 Personal history of nicotine dependence; Z79.899 Other long term (current) drug therapy; Z88.5 Allergy status to narcotic agent; Z88.1 Allergy status to other antibiotic agents; Z88.8 Allergy status to other drugs, medicaments and biological substances; Z91.011 Allergy to milk products; Z85.42 Personal history of malignant neoplasm of other parts of uterus

== ENCOUNTER 2019-03-27 08:46 | Emergency (ER) | payer MEDICARE, OTHER ==
[~2019-03-27] VITALS: Ht 157.5 cm; Wt 70.5 kg
[~2019-03-27 08:46] MED LIST changes: +LEVA750T7 PO; +LORA-674 PO
[2019-03-27] MEDS ORDERED: NS 1,000 ML IV ONE (09:30)
[2019-03-27] MEDS ORDERED: ONDANSETRON 4MG/2ML VIAL (J2405) IV ONE (09:30)
[2019-03-27] MEDS ORDERED: KETOROLAC 30 MG/ML VIAL (J1885) IV ONE (09:30)
[2019-03-27 10:18] LABS: BASO % 0.4 % (0.0-1.0); EOS % 0.2 % (0.0-3.0); HEMATOCRIT 38.9 % (36.0-47.0); HEMOGLOBIN 14.1 g/dl (12.0-15.5); LYMPH # 1.4 10^3/uL (1.5-5.0); LYMPH % 26.1 % (24.0-44.0); MEAN CORPUSCULAR HEMOGLOBIN 31.4 pg (27.0-33.0); MEAN CORPUSCULAR HGB CONC 36.2 g/dl (32.0-36.5); MEAN CORPUSCULAR VOLUME 86.6 fl (80.0-96.0); MONO # 0.3 10^3/uL (0.0-0.8); MONO % 6.3 % (0.0-5.0); NEUTROPHILS # 3.5 10^3/uL (1.5-8.5); NEUTROPHILS % 66.8 % (36.0-66.0); PLATELET COUNT, AUTOMATED 217 10^3/uL (150-450); RED BLOOD COUNT 4.49 10^6/uL (4.00-5.40); WHITE BLOOD COUNT 5.2 10^3/uL (4.0-10.0)
[2019-03-27 10:41] LABS: ALBUMIN 4.1 GM/DL (3.2-5.2); BILIRUBIN,DIRECT 0.1 MG/DL (0.0-0.2); BILIRUBIN,TOTAL 0.5 MG/DL (0.2-1.0); TOTAL PROTEIN 7.6 GM/DL (6.4-8.2)
--- NOTE | 2019-03-27 11:04 | REP ---
Clinical: Right upper quadrant pain. Technique: Real time mcdowell scale and color ultrasound examination using curved array transducer. Findings: The liver demonstrates increased echotexture consistent with fatty infiltration and focal fatty sparing adjacent to the gallbladder fossa. Pancreas is incompletely evaluated but visualized portions appear normal. The gallbladder is unremarkable and without gallstones, wall thickening, or pericholecystic fluid. No biliary ductal dilatation is appreciated and the common bile duct measures 6.4 mm diameter. The right kidney is normal in reniform shape without hydronephrosis and measures 10.0 x 3.9 x 4.3 cm. No ascites. Impression: Hepatic steatosis. Electronically Signed by Beka Madrigal MD 03/27/2019 10:56 A
[2019-03-27] MEDS ORDERED: CIPROFLOXACIN 500 MG TAB PO ONE (12:00)
[2019-03-27] MEDS ORDERED: CIPR-249 PO (12:11)
[2019-03-27] MEDS ORDERED: KETO10TAB PO (12:12)
[2019-03-27 12:17] VITALS: BP 187/83
== END 2019-03-27 12:59 | disposition home or self-care (01) ==
LOC: M ED 08:46
DX: N30.00 Acute cystitis without hematuria (principal); M54.9 Dorsalgia, unspecified; I10 Essential (primary) hypertension; E78.5 Hyperlipidemia, unspecified; G89.29 Other chronic pain; M54.2 Cervicalgia; K21.9 Gastro-esophageal reflux disease without esophagitis; K44.9 Diaphragmatic hernia without obstruction or gangrene; E03.9 Hypothyroidism, unspecified; F41.9 Anxiety disorder, unspecified; F32.9 Major depressive disorder, single episode, unspecified; M10.9 Gout, unspecified; K76.0 Fatty (change of) liver, not elsewhere classified; E73.9 Lactose intolerance, unspecified; Z79.899 Other long term (current) drug therapy; Z88.1 Allergy status to other antibiotic agents; Z88.5 Allergy status to narcotic agent; Z88.8 Allergy status to other drugs, medicaments and biological substances
CPT/HCPCS: 76705; 80047; 80076; 81001; 83690; 85025; 87088; 87186; 96361; 96374; 96375; 99284; J1885; J2405

== ENCOUNTER → 2019-04-08 | Outpatient (REF) | payer MEDICARE, OTHER ==
[~2019-04-08] MED LIST changes: +CIPR-249 PO; +KETO10TAB PO
== END ==
LOC: M LAB REF 11:10
PROVIDERS: ATTEND Internal Medicine
DX: R19.7 Diarrhea, unspecified (principal)

== ENCOUNTER → 2019-06-26 | Outpatient (CLI) | payer MEDICARE, OTHER ==
--- NOTE | 2019-06-26 12:26 | REP ---
Clinical: Chest pain. History of osteoarthritis . Comparison: 11/28/2018 . Technique: PA and lateral. Findings: The mediastinum and cardiac silhouette are normal. The lung [place] are clear and without acute consolidation, effusion, or pneumothorax. The skeletal structures are intact and normal. Impression: 1. No acute cardiopulmonary process. Electronically Signed by Beka Madrigal MD 06/26/2019 12:19 P
[2019-06-26 12:49] LABS: HEMATOCRIT 37.4 % (36.0-47.0); HEMOGLOBIN 12.7 g/dl (12.0-15.5); MEAN CORPUSCULAR HEMOGLOBIN 31.5 pg (27.0-33.0); MEAN CORPUSCULAR VOLUME 92.8 fl (80.0-96.0); PLATELET COUNT, AUTOMATED 207 10^3/uL (150-450); RED BLOOD COUNT 4.03 10^6/uL (4.00-5.40)
[2019-06-26 13:01] LABS: INR 1.04; PROTHROMBIN TIME 13.3 SECONDS (11.8-14.0)
[2019-06-26 13:12] LABS: ERYTHROCYTE SEDIMENTATION RATE 47 mm/hr (0-30)
[2019-06-26 13:17] LABS: ALBUMIN 3.8 GM/DL (3.2-5.2); ALT/SGPT 38 U/L (12-78); BILIRUBIN,TOTAL 0.5 MG/DL (0.2-1.0); BLOOD UREA NITROGEN 12 MG/DL (7-18); CALCIUM LEVEL 9.3 MG/DL (8.8-10.2); CARBON DIOXIDE LEVEL 28 MEQ/L (21-32); CHLORIDE LEVEL 100 MEQ/L (98-107); CREATININE FOR GFR 0.64 MG/DL (0.55-1.30); GLOMERULAR FILTRATION RATE > 60.0 (>45); GLUCOSE, FASTING 95 MG/DL (70-100); SODIUM LEVEL 137 MEQ/L (136-145); TOTAL PROTEIN 7.6 GM/DL (6.4-8.2)
--- NOTE | 2019-06-27 08:00 | ECGEPIP ---
[facility] Test Date: 2019-06-26 Pat Name: SHUBHAM ESCOBAR Department: Room: - Gender: Female Clinical Radiologist: GWEN : 1950 Requested By: Maury Hightower Order Number: [id number] Reading MD: Alexander Carmen Measurements Intervals [place] Rate: 100 P: 59 [place]: 178 QRS: 15 QRSD: 79 T: 41 QT: 344 QTc: 444 Interpretive Statements SINUS TACHYCARDIA Delayed anterior R wave progression Similar to tracing done 11-28-18 with slightly increased rate Electronically Signed on 06-27-2019 8:00:39 EST by Alexander Carmen
== END ==
LOC: M RAD 10:35
PROVIDERS: ATTEND Orthopaedic Surgery
DX: Z01.810 Encounter for preprocedural cardiovascular examination (principal); M16.11 Unilateral primary osteoarthritis, right hip; R00.0 Tachycardia, unspecified

== ENCOUNTER 2019-07-09 05:37 | Inpatient (IN) | payer MEDICARE, OTHER ==
--- NOTE | 2019-07-03 15:12 | HPE ---
DATE OF ADMISSION: 07/09/2019 HISTORY OF PRESENT ILLNESS: Violette Meza is a pleasant 68-year-old female with continuing symptomatic right hip osteoarthritis. She has consented for right total hip arthroplasty per Dr. Maury singh. Medical optimization was performed on 06/28/[address] Enriquez, which we are awaiting optimization clearance. The patient reports that she was cleared. Her x-rays were consistent with advanced osteoarthritis. ALLERGIES: ERYTHROMYCIN, CODEINE, LACTOSE. MEDICATIONS: - Bactroban nasal 2% - Verapamil HCl ER 240 mg - Micardis HCT 80 - 12.5 mg - Nexium 40 mg - Allopurinol 100 mg - allergy relief nighttime 25 mg - vitamin E 400 units - vitamin D3 super strength 2000 units - flaxseed oil 1000 mg - Zoloft 100 mg Medical problem list includes right hip symptomatic osteoarthritis. Essential hypertension. Pure hypercholesteremia. Anxiety, depression. PAST SURGICAL HISTORY: Right knee replacement. Tubal ligation 1983. Total hysterectomy. FAMILY HISTORY: Arthritis, diabetes, hypertension, hypercholesteremia, cancer, heart disease. SOCIAL HISTORY: Denies smoking. Currently consumes alcohol minimally. Denies illicit drugs. REVIEW OF SYSTEMS: Denies chest pain, shortness of breath, dyspnea exertion, fever, chills, malaise, upper respiratory or urinary tract symptoms. EKG sinus tachycardia, delayed anterior R-wave progression as read by Dr. Alexander Carmen, noted similar tracing on 11/28/2018 with slightly increased rate via [facility] service date 06/26/2019. Chest x-ray [facility] service date 06/26/2019 showed no acute cardiopulmonary process as read by Dr. Madrigal. LABORATORY DATA ESR 47, otherwise unremarkable. Prior to comparative ESR was 47 on 08/27/2018 as well. Vitals: Heart rate 86, respirations 16, blood pressure 142/82. Temperature 98.5. Height 62 inches. Weight 169.8. Height 5 feet 2 inches. BMI 30.8. She is a pleasant, well-developed, well-nourished overweight female in no acute distress. Alert and oriented times three. Mood and affect are appropriate. She is ambulating without overt antalgia. She does have favoring of the left lower extremity. She has right hip range of motion irritability and limitation through range of motion. Abdomen is soft, nontender times four. Negative bruit. Chest rises symmetrically. Regular rate and rhythm. Lungs are clear to auscultation. Neck is supple. Negative jugular venous distention (JVD) or bruits. Normocephalic. IMPRESSION: 1. Symptomatic right hip osteoarthritis. 2. The patient consented for a right total hip arthroplasty per Dr. Maury Singh. 3. Medical optimization performed by Dr. Enriquez on 06/28/2019 which we are awaiting clearance note. 4. On-call OR, 2 grams IV Kefzol in OR. 5. Sequential compression device (SCD) and TEDs in OR. MTDD
[~2019-07-09] VITALS: Ht 157.5 cm; Wt 77.3 kg
[2019-07-09] VITALS (9 sets, daily range): BP systolic 136–175; BP diastolic 57–97
[~2019-07-09 05:37] MED LIST changes: +FLUO20CA20 PO; -FLUO20CA8 PO
[2019-07-09] MEDS ORDERED: LIDOCAINE 1% MDV 20ML VIAL SQ PRN (06:00)
[2019-07-09] MEDS ORDERED: PROPOFOL 200 MG/20 ML VIAL As Ordered ONE ×3 (06:07→09:12)
[2019-07-09] MEDS ORDERED: LIDOCAINE 2% INJ 100 MG/5 ML SDV (FOR ANES.) As Ordered ONE (06:07)
[2019-07-09] MEDS ORDERED: MIDAZOLAM INJ 2 MG/2 ML VIAL (J2250) As Ordered ONE ×2 (06:10→08:12)
[2019-07-09] MEDS ORDERED: fentaNYL 100 MCG/2 ML INJECTION (J3010) As Ordered ONE (06:10)
[2019-07-09] MEDS ORDERED: LR 1,000 ML IV ONE (07:00)
[2019-07-09] MEDS ORDERED: ceFAZolin SOD 2 GM in IV 1 EA IV ONE (07:00)
[2019-07-09] MEDS ORDERED: ceFAZolin 1GM INJ (J0690 PER 500MG) As Ordered ONE (07:03)
[2019-07-09] MEDS ORDERED: EPINEPHrine INJ 1 MG/ML 1ML VIAL As Ordered ONE (07:03)
[2019-07-09] MEDS ORDERED: BUPIVACAINE LIPOSOME/PF 1.3% 20ML VIAL (13.3MG/ML)(EXPAREL)(C9290 PER1MG) As Ordered ONE (07:04)
[2019-07-09] MEDS ORDERED: TRANEXAMIC ACID 100 MG/ML 10ML VIAL As Ordered ONE (07:04)
--- NOTE | 2019-07-09 08:05 | IPN ---
DATE: 07/09/2019 The patient is seen and examined. She wished to go ahead with a right hip arthroplasty. Preop clearance was obtained. She understands the nature of this, the risks of bleeding, infection, damage to nerves, vessels, persistent pain, wear loosening, dislocation, leg length inequality, blood clots, medical problems, among others.
[2019-07-09] MEDS ORDERED: diphenhydrAMINE INJ 50MG/ML VIAL (J1200) As Ordered ONE (09:12)
[2019-07-09] MEDS ORDERED: PHENYLephrine HCL 500 MCG/5 ML (100MCG/ML) SYRINGE (J2370) As Ordered ONE (09:12)
[2019-07-09] MEDS: LR 1,000 ML IV SCH ×2 (09:30→23:05)
[2019-07-09] MEDS ORDERED: FLEET ENEMA PR PRN (10:00)
[2019-07-09] MEDS ORDERED: LR 1,000 ML IV SCH (10:00)
[2019-07-09] MEDS ORDERED: ACETAMINOPHEN TAB 650MG DOSE (2X325MG) PO PRN (10:00)
[2019-07-09] MEDS ORDERED: METOCLOPRAMIDE INJ 10MG/2ML VIAL (J2765) IV PRN (10:00)
[2019-07-09] MEDS ORDERED: ONDANSETRON 4MG/2ML VIAL (J2405) IV PRN ×2 (10:00)
[2019-07-09] MEDS ORDERED: PERCOCET 5MG/325MG TAB PO PRN ×2 (10:00)
[2019-07-09] MEDS ORDERED: MORPHINE 2 MG/ML 1ML VIAL (J2270) IV PRN ×2 (10:00)
[2019-07-09] MEDS ORDERED: fentaNYL 100 MCG/2 ML INJECTION (J3010) IV PRN (10:00)
--- NOTE | 2019-07-09 10:35 | REP ---
RIGHT HIP, TWO VIEWS: Two views of the right hip were performed. There is placement of a total hip prosthesis. This is in good position. Osseous structures are intact and well aligned. Electronically Signed by Ramone Fung MD 07/09/2019 04:02 P
--- NOTE | 2019-07-09 12:40 | CR ---
DATE OF CONSULTATION: 07/09/[address] CAMILA MENCHACA PRIMARY CARE PROVIDER: Dr. Sumeet Enriquez This is a hospitalist medical consultation on Violette Meza who had a right total hip arthroplasty today. Dr. Sumeet Enriquez did her preoperative clearance. MEDICAL HISTORY: Includes hypertension, hyperlipidemia, anxiety and depression, as well as, possibly history of gout. HOME MEDICATIONS: Verapamil ER 240 mg daily, Micardis/HCT 80/12.5 daily, Nexium 40 mg daily, allopurinol 100 mg daily, and various vitamins like vitamin E and vitamin D, flaxseed oil, and Zoloft 150 mg daily. SURGICAL HISTORY: Right knee replacement, tubal ligation, hysterectomy. SOCIAL HISTORY: No smoking. No alcohol. REVIEW OF SYSTEMS: No chest pain, shortness of breath, palpitations, dyspnea on exertion. PHYSICAL EXAMINATION: Vital Signs: Stable per flow sheet. Lungs: Clear. Heart: Regular rhythm. Abdomen: Soft. Nontender. No peripheral edema. Good distal pulses. L IMPRESSION: 1. Hypertensive heart disease. Blood pressure is well controlled. Restart her Verapamil. Hold off on Micardis for now until her blood pressure declares itself postoperatively. 2. Hyperlipidemia. Restart atorvastatin 40 mg daily. 3. History of anxiety/depression. Restart amitriptyline 50 mg at bedtime, Xanax 0.25 mg three times a day as needed, and Sertraline 150 mg daily. 4. History of dyspepsia. Refill Protonix 40 mg daily. The hospitalist group is available if any medical issues develop during the course of the patient's hospitalization.
[2019-07-09] MEDS: CYCLOBENZAPRINE 10 MG TAB PO SCH ×2 (14:00→21:16)
[2019-07-09] MEDS: MORPHINE 4 MG/ML 1ML VIAL/SYRINGE (J2270) IV PRN ×3 (14:08→18:32)
[2019-07-09] MEDS ORDERED: PERCOCET 5MG/325MG TAB PO ONE (15:30)
[2019-07-09] MEDS: ceFAZolin SOD 2 GM in IV 1 EA IV SCH ×2 (15:33→23:29)
[2019-07-09] MEDS ORDERED: HYDROMORPHONE HCL 0.5 MG/ 0.5 ML SYRINGE (J1170 PER 1) IV PRN (16:15)
[2019-07-09] MEDS: MORPHINE 15 MG SA TAB PO SCH (17:17)
[2019-07-09] MEDS: PERCOCET 5MG/325MG TAB PO PRN ×2 (19:15→23:29)
[2019-07-09] MEDS: AMITRIPTYLINE 50 MG TAB PO SCH (23:29)
--- NOTE | 2019-07-09 23:29 | RO ---
DATE OF PROCEDURE: 07/09/2019 PREOPERATIVE DIAGNOSIS: Right hip osteoarthritis. POSTOPERATIVE DIAGNOSIS: Right hip osteoarthritis. PROCEDURE: Right total hip arthroplasty using a [place] size 3 high offset, 50 cup, 32 ball, +5 neck. SURGEON: Maury Hightower MD LOADERS: Guerita Dillon PA-C ANESTHESIA: Spinal. ESTIMATED BLOOD LOSS: 200 mL. COMPLICATIONS: None. INDICATIONS: 68-year-old woman who wished to go ahead with a hip replacement. Preop clearance was obtained. DESCRIPTION OF PROCEDURE: The patient was taken to the operating room, placed in the left lateral decubitus position on the [place] positioner. All areas were padded appropriately. The right hip was prepped and draped in the usual sterile fashion. Preoperatively she had remarkably little external rotation, which made the prep somewhat difficult, but we were able to get an appropriate prep and drape. A time-out was performed and an incision was made over the lateral aspect of the right hip. Sharp dissection was carried down through the subcutaneous tissue until the fascia was encountered. She did have fairly copious subcutaneous tissue. I controlled hemostasis with the cautery and then incised the fascia. The abductor was identified. The anterior 40% of the abductor was then dissected off and gradually exposed the femoral neck, releasing the labrum. The dissection was carried out around the proximal femur and then I was able to dislocate the hip without too much difficulty. I then prepared the canal, and canal initiating reamer, followed by the canal finding reamer, followed by the lateralizing reamer were then used. It was evident that the canal was quite tight, and I was able to ream up to a size 3, and this was as far as I could get with the reamer comfortably. I then made the neck cut, about three-quarters of a fingerbreadth up from the lesser trochanter and removed the head. She had severe arthritis and a fairly small head. I then prepared the acetabulum, anterior and posterior retractors were placed. I then removed the soft tissue from around the acetabulum and then sequentially reamed up to a size 49, which had good concentric reaming and good bleeding bone. There were some osteophytes around the acetabulum. I then impacted the size 50 Gription cup, and made sure it was well seated. The polyethylene was then inserted, a 32 x 50, impacted this in place and made sure it was well seated. I was very pleased with the appropriate amount of anteversion and horizontal tilt. This matched up actually with her anatomy pretty well. I did have to remove some osteophytes from anterior and posterior around the acetabulum. I had made sure that the cup was seated before placing the apex hole eliminator. I then directed attention to the femur and sequentially broached up to a size 3, which had a good fit and fill. I did calcar plane slightly and then used trial head and neck combinations. The size 5 high offset seemed to have the appropriate amount of stability and soft tissue tension. With a standard offset, it seemed like I could get her to dislocate with extension external rotation, so I went with the high offset and she was very stable. Again, external rotation was quite limited, and I think due to just some chronic soft tissue tightness. I then removed the trial components. I irrigated multiple times. I again irrigated the canal. I then impacted the size 3 stem high offset and then the +5 neck/head combination with a size 32 ball. This was impacted until it was well seated. The hip was then reduced with the assistant credit manager's help. I put the hip through range of motion. I was very pleased with the stability, soft tissue tension, and there was minimal shucking in full extension. I then irrigated copiously, placed the TXA deep in the wound. The Exparel was placed deep in the wound as well, and then repaired the medius and minimus with #1 Vicryl suture. I was able to get a good repair. However, the abductors anteriorly were a little bit on the friable side, so I used extra stitches to get this repaired. I then irrigated, closed the fascia maile with #1 Vicryl suture and running Stratafix suture. I then repaired the subcu in two layers with #2-0 Vicryl because of the depth of the wound. Irrigated at each level, closed the skin with teja. Sterile dressing was applied, and she was taken to recovery room in stable condition. There were no known complications. The plan will be routine postop. The assistant credit manager was instrumental in holding retractors and assisting in reducing and dislocating the hip and assisting in wound closure.
[2019-07-10] VITALS (7 sets, daily range): BP systolic 118–145; BP diastolic 70–89
[2019-07-10] MEDS: CYCLOBENZAPRINE 10 MG TAB PO SCH ×3 (05:07→21:18)
[2019-07-10] MEDS: MORPHINE 15 MG SA TAB PO SCH (06:27)
[2019-07-10 07:24] LABS: HEMATOCRIT 34.2 % (36.0-47.0); HEMOGLOBIN 11.3 g/dl (12.0-15.5); MEAN CORPUSCULAR HEMOGLOBIN 30.9 pg (27.0-33.0); MEAN CORPUSCULAR VOLUME 93.4 fl (80.0-96.0); PLATELET COUNT, AUTOMATED 210 10^3/uL (150-450); RED BLOOD COUNT 3.66 10^6/uL (4.00-5.40); WHITE BLOOD COUNT 7.5 10^3/uL (4.0-10.0)
[2019-07-10] MEDS: PANTOPRAZOLE 40MG TAB (PROTONIX) PO SCH (08:31)
[2019-07-10] MEDS: ATORVASTATIN 20 MG TAB PO SCH (08:31)
[2019-07-10] MEDS: VERAPAMIL 120 MG SR TAB PO SCH (08:31)
[2019-07-10] MEDS: SENOKOT S TAB PO SCH ×2 (08:32→21:18)
[2019-07-10] MEDS: SERTRALINE HCL 50 MG TAB PO SCH (08:32)
[2019-07-10] MEDS: MOM 30ML SUSPENSION UDC PO SCH (08:32)
[2019-07-10] MEDS: PERCOCET 5MG/325MG TAB PO PRN ×2 (08:34→14:30)
[2019-07-10] MEDS: MIRALAX *UNIT DOSE* 17GM PACKET PO SCH (08:35)
--- NOTE | 2019-07-10 09:45 | IPN ---
DATE: 07/10/2019 Violette is seen postoperatively. She is having a lot of postop pain and so is not apparently being discharged today. She is being seen medically for her blood pressure which is under good control. PHYSICAL EXAMINATION: 118/76. General Appearance: Mildly anxious. Lungs clear. Heart: Regular rhythm. Abdomen: Soft and nontender. LABS: CBC is unremarkable. IMPRESSION: 1. Hypertension, well controlled on the current regimen. 2. Postop orthopedics. Care per ortho group. 3. Hyperlipidemia. Continue atorvastatin 40 mg daily. 4. History of anxiety/depression. Continue her amitriptyline, Xanax and Sertraline.
[2019-07-10] MEDS: RIVAROXABAN 10 MG TAB (XARELTO) PO SCH (17:11)
[2019-07-10] MEDS: AMITRIPTYLINE 50 MG TAB PO SCH (21:18)
[2019-07-11 05:00] VITALS: BP 140/78
[2019-07-11] MEDS: CYCLOBENZAPRINE 10 MG TAB PO SCH (05:26)
--- NOTE | 2019-07-11 09:29 | IPN ---
DATE OF SERVICE: 07/11/2019 Violette is seen in [address] [place]. She is postoperative. She is still having pain problems. Having some acute urinary retention, probably from narcotics and bedrest. Continued to be straight cathed. PHYSICAL EXAMINATION: Vital signs stable. 140/78. Lungs clear. Heart: Regular rate and rhythm. Abdomen: Soft and nontender. No peripheral edema. IMPRESSION: 1. Acute urinary retention. Recommend de-escalating opiate treatment and getting her more active. as needed. Would not recommend using Flomax. There is no real data to support use of this in women, and the few studies that have been done were inconclusive and used doses of tamsulosin that are not even available in our country. 2. Hypertension. Her blood pressure is well controlled. She is on Micardis as an outpatient. This does not need to be restarted, as her blood pressure is still within goals. Stable for discharge once urinating without need for catheterization. .
[2019-07-11] MEDS: MIRALAX *UNIT DOSE* 17GM PACKET PO SCH (09:51)
[2019-07-11] MEDS: ATORVASTATIN 20 MG TAB PO SCH (09:51)
[2019-07-11] MEDS: SENOKOT S TAB PO SCH ×2 (09:51→20:35)
[2019-07-11] MEDS: MOM 30ML SUSPENSION UDC PO SCH (09:51)
[2019-07-11] MEDS: VERAPAMIL 120 MG SR TAB PO SCH (09:52)
[2019-07-11] MEDS: ACETAMINOPHEN 500 MG TAB PO SCH ×3 (09:52→20:36)
[2019-07-11] MEDS: SERTRALINE HCL 50 MG TAB PO SCH (09:53)
[2019-07-11 10:00] VITALS: BP_SYST 124; BP_SYST 177; BP_DIAS 72; BP_DIAS 80
[2019-07-11 14:00] VITALS: BP 147/63
[2019-07-11] MEDS ORDERED: ALPRAZolam 0.25 MG TAB PO PRN (17:30)
[2019-07-11] MEDS: RIVAROXABAN 10 MG TAB (XARELTO) PO SCH (17:39)
[2019-07-11 17:51] LABS: APPEARANCE, URINE CLEAR (CLEAR); BACTERIA, URINE AUTO NEGATIVE (NEGATIVE); BILIRUBIN, URINE AUTO NEGATIVE (NEGATIVE); BLOOD, URINE BLOOD 3+ (NEGATIVE); COLOR, URINE STRAW (YELLOW); GLUCOSE, URINE (UA) AUTO NEGATIVE (NEGATIVE); KETONE, URINE AUTO NEGATIVE (NEGATIVE); LEUKOCYTE ESTERASE, URINE AUTO NEGATIVE (NEGATIVE); NITRITE, URINE AUTO NEGATIVE (NEGATIVE); PROTEIN, URINE AUTO NEGATIVE (NEGATIVE); RBC, URINE AUTO 0 /HPF (0-3); SPECIFIC GRAVITY URINE AUTO 1.001 (1.002-1.035); SQUAMOUS EPITHELIAL CELL UR AU 0 /HPF (0-6); UROBILINOGEN, URINE AUTO 0.2 mg/dL (0.0-2.0); WBC, URINE AUTO 0 /HPF (0-3)
[2019-07-11] MEDS: traMADol 50 MG TAB PO PRN (20:35)
[2019-07-11] MEDS: AMITRIPTYLINE 50 MG TAB PO SCH (20:35)
[2019-07-11 20:37] VITALS: BP 138/71
[2019-07-12 06:09] VITALS: BP 150/71
[2019-07-12] MEDS ORDERED: TRAM50TA2 PO (06:29)
[2019-07-12] MEDS ORDERED: XARE10TA PO (06:29)
[2019-07-12] MEDS: traMADol 50 MG TAB PO PRN (06:49)
[2019-07-12 06:51] LABS: HEMATOCRIT 29.4 % (36.0-47.0); HEMOGLOBIN 10.1 g/dl (12.0-15.5); MEAN CORPUSCULAR HEMOGLOBIN 31.6 pg (27.0-33.0); MEAN CORPUSCULAR HGB CONC 34.4 g/dl (32.0-36.5); MEAN CORPUSCULAR VOLUME 91.9 fl (80.0-96.0); PLATELET COUNT, AUTOMATED 167 10^3/uL (150-450); WHITE BLOOD COUNT 6.1 10^3/uL (4.0-10.0)
[2019-07-12 07:22] LABS: ALBUMIN 2.5 GM/DL (3.2-5.2); ALT/SGPT 22 U/L (12-78); BILIRUBIN,TOTAL 0.6 MG/DL (0.2-1.0); BLOOD UREA NITROGEN 9 MG/DL (7-18); CALCIUM LEVEL 8.7 MG/DL (8.8-10.2); CARBON DIOXIDE LEVEL 30 MEQ/L (21-32); CHLORIDE LEVEL 91 MEQ/L (98-107); CREATININE FOR GFR 0.57 MG/DL (0.55-1.30); GLOMERULAR FILTRATION RATE > 60.0 (>45); GLUCOSE, FASTING 118 MG/DL (70-100); POTASSIUM SERUM 3.7 MEQ/L (3.5-5.1); SODIUM LEVEL 128 MEQ/L (136-145); TOTAL PROTEIN 6.9 GM/DL (6.4-8.2)
[2019-07-12] MEDS ORDERED: MAGNESIUM CITRATE 300 ML BTL PO ONE (07:45)
[2019-07-12] MEDS: MIRALAX *UNIT DOSE* 17GM PACKET PO SCH (09:00)
[2019-07-12 09:16] VITALS: BP 150/71
[2019-07-12] MEDS: VERAPAMIL 120 MG SR TAB PO SCH (09:16)
[2019-07-12] MEDS: MOM 30ML SUSPENSION UDC PO SCH (09:16)
[2019-07-12] MEDS: SERTRALINE HCL 50 MG TAB PO SCH (09:16)
[2019-07-12] MEDS: ACETAMINOPHEN 500 MG TAB PO SCH (09:16)
--- NOTE | 2019-07-12 09:16 | IPN ---
DATE: 07/12/2019 Violette had some visual and auditory hallucinations yesterday. I think she was withdrawing from her alprazolam. These seem to have resolved today. PHYSICAL EXAM: Vital Signs: Stable, 150/71. Alert, conversant. No distress. Lungs: Clear. Heart: Regular rate and rhythm. Abdomen: Soft, nontender. LABS: CBC unremarkable. BMP shows sodium is down to 128. IMPRESSION: 1. Visual and auditory hallucination probably from withdrawing from alprazolam. This has been restarted and these have resolved. 2. Hyponatremia. At this point, it might have a bearing on her altered mental status yesterday as well. She did have acute urinary retention and now her catheter might be post obstructive related. I would not treat this with anything other than increased salt intake and repeat the med profile in the morning. 3. Hypertension. Blood pressure is well controlled. She is not on Micardis HCT that she is taking as an outpatient. This might need to be restarted depending on how her blood pressure goes over the next few days. Apparently the plan is to go to [facility] for rehabilitation. Would recommend a BMP tomorrow. If sodium is worse, she might get a fluid restriction.
[2019-07-12] MEDS: ATORVASTATIN 20 MG TAB PO SCH (09:17)
[2019-07-12] MEDS: PANTOPRAZOLE 40MG TAB (PROTONIX) PO SCH (09:17)
[2019-07-12] MEDS: SENOKOT S TAB PO SCH (09:17)
== END 2019-07-12 10:45 | DRG 470 ==
LOC: M OR 05:37 → M MS5PR 11:15
PROVIDERS: ADMIT Orthopaedic Surgery; ATTEND Orthopaedic Surgery
PROC: 0SR902A Replacement of Right Hip Joint with Metal on Polyethylene Synthetic Substitute, Uncemented, Open Approach (ICD-10-PCS; principal; 2019-07-09 07:30)
DX: M16.11 Unilateral primary osteoarthritis, right hip (principal); Z79.899 Other long term (current) drug therapy; Z88.1 Allergy status to other antibiotic agents; Z88.5 Allergy status to narcotic agent; E73.9 Lactose intolerance, unspecified; I11.9 Hypertensive heart disease without heart failure; E78.00 Pure hypercholesterolemia, unspecified; F41.9 Anxiety disorder, unspecified; F32.9 Major depressive disorder, single episode, unspecified; M10.9 Gout, unspecified; E78.5 Hyperlipidemia, unspecified; R33.9 Retention of urine, unspecified

== ENCOUNTER → 2019-07-13 | Outpatient (REF) ==
[~2019-07-13] MED LIST changes: +TRAM50TA2 PO
[2019-07-13 08:07] LABS: BLOOD UREA NITROGEN 7 MG/DL (7-18); CALCIUM LEVEL 8.6 MG/DL (8.8-10.2); CARBON DIOXIDE LEVEL 31 MEQ/L (21-32); CHLORIDE LEVEL 94 MEQ/L (98-107); CREATININE FOR GFR 0.58 MG/DL (0.55-1.30); GLOMERULAR FILTRATION RATE > 60.0 (>45); GLUCOSE, FASTING 109 MG/DL (70-100); SODIUM LEVEL 133 MEQ/L (136-145)
== END ==
LOC: SKLAB5 08:21
PROVIDERS: ATTEND Internal Medicine
DX: E87.1 Hypo-osmolality and hyponatremia (principal)

== ENCOUNTER → 2019-07-14 | Outpatient (REF) ==
[2019-07-14 07:06] LABS: BLOOD UREA NITROGEN 9 MG/DL (7-18); CALCIUM LEVEL 8.5 MG/DL (8.8-10.2); CARBON DIOXIDE LEVEL 31 MEQ/L (21-32); CHLORIDE LEVEL 95 MEQ/L (98-107); CREATININE FOR GFR 0.59 MG/DL (0.55-1.30); GLOMERULAR FILTRATION RATE > 60.0 (>45); GLUCOSE, FASTING 98 MG/DL (70-100); POTASSIUM SERUM 3.5 MEQ/L (3.5-5.1); SODIUM LEVEL 135 MEQ/L (136-145)
== END ==
LOC: SKLAB5 08:20
PROVIDERS: ATTEND Internal Medicine
DX: E87.1 Hypo-osmolality and hyponatremia (principal)

== ENCOUNTER → 2019-07-15 | Outpatient (REF) ==
[2019-07-15 09:05] LABS: BLOOD UREA NITROGEN 8 MG/DL (7-18); CALCIUM LEVEL 8.7 MG/DL (8.8-10.2); CARBON DIOXIDE LEVEL 31 MEQ/L (21-32); CHLORIDE LEVEL 98 MEQ/L (98-107); CREATININE FOR GFR 0.55 MG/DL (0.55-1.30); GLOMERULAR FILTRATION RATE > 60.0 (>45); GLUCOSE, FASTING 108 MG/DL (70-100); POTASSIUM SERUM 3.2 MEQ/L (3.5-5.1); SODIUM LEVEL 134 MEQ/L (136-145)
== END ==
LOC: SKLAB5 06:54
PROVIDERS: ATTEND Internal Medicine
DX: E87.1 Hypo-osmolality and hyponatremia (principal)

== ENCOUNTER → 2019-07-18 | Outpatient (REF) ==
[2019-07-18 14:01] LABS: HEMATOCRIT 31.1 % (36.0-47.0); HEMOGLOBIN 10.1 g/dl (12.0-15.5); MEAN CORPUSCULAR HEMOGLOBIN 30.9 pg (27.0-33.0); MEAN CORPUSCULAR HGB CONC 32.5 g/dl (32.0-36.5); MEAN CORPUSCULAR VOLUME 95.1 fl (80.0-96.0); PLATELET COUNT, AUTOMATED 361 10^3/uL (150-450); RED BLOOD COUNT 3.27 10^6/uL (4.00-5.40); WHITE BLOOD COUNT 6.9 10^3/uL (4.0-10.0)
== END ==
LOC: SKLAB5 09:29
PROVIDERS: ATTEND Internal Medicine
DX: D64.9 Anemia, unspecified (principal)

== ENCOUNTER → 2019-07-22 | Outpatient (REF) ==
[2019-07-22 08:32] LABS: BLOOD UREA NITROGEN 8 MG/DL (7-18); CALCIUM LEVEL 9.6 MG/DL (8.8-10.2); CARBON DIOXIDE LEVEL 29 MEQ/L (21-32); CHLORIDE LEVEL 101 MEQ/L (98-107); CREATININE FOR GFR 0.69 MG/DL (0.55-1.30); GLOMERULAR FILTRATION RATE > 60.0 (>45); GLUCOSE, FASTING 88 MG/DL (70-100); POTASSIUM SERUM 4.1 MEQ/L (3.5-5.1); SODIUM LEVEL 137 MEQ/L (136-145)
== END ==
LOC: SKLAB5 07:52
PROVIDERS: ATTEND Internal Medicine
DX: E87.1 Hypo-osmolality and hyponatremia (principal)

== ENCOUNTER → 2021-08-25 | Outpatient (CLI) | payer MEDICARE, OTHER ==
[~2021-08-25] MED LIST changes: -ASPI81TA85 PO; +ASPI81TA86 PO; -DOXY100C PO; +DOXY100C3 PO; +FLUO-96 PO; -FLUO20CA19 PO; -FLUO20CA20 PO; +FLUO20CA22 PO
== END ==
LOC: M WHC 10:54
PROVIDERS: ATTEND Internal Medicine
DX: Z12.31 Encounter for screening mammogram for malignant neoplasm of breast (principal)

== ENCOUNTER → 2022-02-25 | Outpatient (CLI) | payer MEDICARE, OTHER ==
[~2022-02-25] MED LIST changes: +CHOL4POW26 PO; -CHOL4POW4 PO
== END ==
LOC: M WUC 11:09
PROVIDERS: ATTEND Internal Medicine
DX: R05.3 Chronic cough (principal)

== ENCOUNTER → 2022-08-01 | Outpatient (CLI) | payer MEDICARE, OTHER ==
[2022-08-01 14:04] LABS: BASO % 0.8 % (0.0-1.0); EOS % 0.6 % (0.0-3.0); HEMATOCRIT 37.3 % (36.0-47.0); HEMOGLOBIN 12.5 g/dl (12.0-15.5); LYMPH % 36.9 % (24.0-44.0); MEAN CORPUSCULAR HEMOGLOBIN 31.6 pg (27.0-33.0); MEAN CORPUSCULAR HGB CONC 33.5 g/dl (32.0-36.5); MEAN CORPUSCULAR VOLUME 94.2 fl (80.0-96.0); MONO # 0.4 10^3/uL (0.0-0.8); MONO % 8.3 % (2.0-8.0); NEUTROPHILS # 2.8 10^3/uL (1.5-8.5); PLATELET COUNT, AUTOMATED 199 10^3/uL (150-450); RED BLOOD COUNT 3.96 10^6/uL (4.00-5.40); WHITE BLOOD COUNT 5.3 10^3/uL (4.0-10.0)
[2022-08-01 14:11] LABS: APPEARANCE, URINE MANUAL CLEAR (CLEAR); COLOR, URINE MANUAL LT YELLOW (YELLOW); PH,URINE MAN 5.5 UNITS (5.0 - 7.0); SPECIFIC GRAVITY,URINE MANUAL 1.015 (1.002-1.035)
[2022-08-01 14:12] LABS: BILIRUBIN, URINE MANUAL NEGATIVE (NEGATIVE); BLOOD URINE MANUAL NEGATIVE (NEGATIVE); GLUCOSE, URINE (UA) MANUAL NEGATIVE (NEGATIVE); KETONE, URINE MANUAL NEGATIVE (NEGATIVE); LEUKOCYTE ESTERASE, URINE MAN TRACE (NEGATIVE); NITRITE, URINE MANUAL NEGATIVE (NEGATIVE); PROTEIN, URINE MANUAL TRACE mg/dL (NEGATIVE); UROBILINOGEN, URINE MANUAL NORMAL (NORMAL)
[2022-08-01 14:15] LABS: ALBUMIN 3.8 G/DL (3.2-5.2); ALKALINE PHOSPHATASE 82 U/L (46-116); ALT/SGPT 27 U/L (7.0-40); AST/SGOT 27 U/L (<34); BILIRUBIN,TOTAL 0.4 MG/DL (0.3-1.2); BLOOD UREA NITROGEN 13 MG/DL (9-23); CALCIUM LEVEL 8.9 MG/DL (8.3-10.6); CARBON DIOXIDE LEVEL 28 MMOL/L (20-31); CHLORIDE LEVEL 101 MMOL/L (98-107); CREATININE FOR GFR 0.55 MG/DL (0.55-1.30); GLOMERULAR FILTRATION RATE > 60.0 (>39); GLUCOSE, FASTING 91 MG/DL (74-106); INR 0.98; POTASSIUM SERUM 4.2 MMOL/L (3.5-5.1); PROTHROMBIN TIME 13.2 SECONDS (12.5-14.5); SODIUM LEVEL 137 MMOL/L (136-145); TOTAL PROTEIN 7.1 G/DL (5.7-8.2)
[2022-08-01 14:16] LABS: PARTIAL THROMBOPLASTIN TIME 31.3 SECONDS (24.8-34.2)
[2022-08-01 14:32] LABS: BACTERIA, URINE SMALL AMOUNT; HYALINE CAST, URINE NONE SEEN /lpf (0-1); RBC, URINE 0-1 /hpf (0-3); RENAL EPITHELIAL CELLS, URINE SMALL AMOUNT /hpf; SQUAMOUS EPITHELIAL CELL URINE SMALL AMOUNT /hpf (SMALL AMT)
== END ==
LOC: M LAB 12:28
PROVIDERS: ATTEND Orthopaedic Surgery
DX: M47.22 Other spondylosis with radiculopathy, cervical region (principal); Z79.01 Long term (current) use of anticoagulants

== ENCOUNTER → 2022-09-06 | Outpatient (CLI) | payer MEDICARE, OTHER | LOC: M WHC 11:29 | PROVIDERS: ATTEND Nurse Practitioner Family | DX: Z12.31 Encounter for screening mammogram for malignant neoplasm of breast (principal) ==

== ENCOUNTER → 2022-09-14 | Outpatient (CLI) | payer MEDICARE, OTHER ==
[2022-09-14 16:07] LABS: BASO % 0.5 % (0.0-1.0); EOS % 0.5 % (0.0-3.0); HEMATOCRIT 38.1 % (36.0-47.0); HEMOGLOBIN 12.6 g/dl (12.0-15.5); LYMPH # 2.6 10^3/uL (1.5-5.0); LYMPH % 40.8 % (24.0-44.0); MEAN CORPUSCULAR HEMOGLOBIN 31.4 pg (27.0-33.0); MEAN CORPUSCULAR HGB CONC 33.1 g/dl (32.0-36.5); MONO # 0.5 10^3/uL (0.0-0.8); MONO % 7.1 % (2.0-8.0); NEUTROPHILS # 3.3 10^3/uL (1.5-8.5); NEUTROPHILS % 50.9 % (36.0-66.0); PLATELET COUNT, AUTOMATED 241 10^3/uL (150-450); RED BLOOD COUNT 4.01 10^6/uL (4.00-5.40); WHITE BLOOD COUNT 6.5 10^3/uL (4.0-10.0)
[2022-09-14 16:27] LABS: ALKALINE PHOSPHATASE 81 U/L (46-116); ALT/SGPT 34 U/L (7.0-40); AST/SGOT 41 U/L (<34); BLOOD UREA NITROGEN 13 MG/DL (9-23); CALCIUM LEVEL 9.5 MG/DL (8.3-10.6); CARBON DIOXIDE LEVEL 27 MMOL/L (20-31); CHLORIDE LEVEL 99 MMOL/L (98-107); GLOMERULAR FILTRATION RATE > 60.0 (>39); GLUCOSE, FASTING 105 MG/DL (74-106); POTASSIUM SERUM 4.5 MMOL/L (3.5-5.1); SODIUM LEVEL 136 MMOL/L (136-145)
[2022-09-14 16:29] LABS: ERYTHROCYTE SEDIMENTATION RATE 35 mm/hr (0-30)
[2022-09-14 18:59] LABS: BILIRUBIN,TOTAL 0.4 MG/DL (0.3-1.2); TOTAL PROTEIN 7.5 G/DL (5.7-8.2)
[2022-09-14 19:02] LABS: URIC ACID 5.3 MG/DL (3.1-7.8)
== END ==
LOC: M PLALAB 12:22
PROVIDERS: ATTEND Physician Assistant
DX: M47.22 Other spondylosis with radiculopathy, cervical region (principal)

== ENCOUNTER → 2022-09-26 | Outpatient (CLI) | payer MEDICARE, OTHER ==
[2022-09-26 15:46] LABS: BASO % 0.7 % (0.0-1.0); EOS % 0.5 % (0.0-3.0); HEMATOCRIT 37.2 % (36.0-47.0); HEMOGLOBIN 12.5 g/dl (12.0-15.5); LYMPH # 1.8 10^3/uL (1.5-5.0); LYMPH % 41.9 % (24.0-44.0); MEAN CORPUSCULAR HEMOGLOBIN 31.6 pg (27.0-33.0); MEAN CORPUSCULAR HGB CONC 33.6 g/dl (32.0-36.5); MEAN CORPUSCULAR VOLUME 94.2 fl (80.0-96.0); MONO # 0.4 10^3/uL (0.0-0.8); MONO % 9.3 % (2.0-8.0); NEUTROPHILS % 47.4 % (36.0-66.0); PLATELET COUNT, AUTOMATED 205 10^3/uL (150-450); RED BLOOD COUNT 3.95 10^6/uL (4.00-5.40); WHITE BLOOD COUNT 4.2 10^3/uL (4.0-10.0)
[2022-09-26 15:55] LABS: ALBUMIN 3.9 G/DL (3.2-5.2); ALKALINE PHOSPHATASE 78 U/L (46-116); ALT/SGPT 38 U/L (7.0-40); AST/SGOT 39 U/L (<34); BILIRUBIN,TOTAL 0.5 MG/DL (0.3-1.2); BLOOD UREA NITROGEN 13 MG/DL (9-23); CALCIUM LEVEL 8.9 MG/DL (8.3-10.6); CARBON DIOXIDE LEVEL 30 MMOL/L (20-31); CHLORIDE LEVEL 99 MMOL/L (98-107); CREATININE FOR GFR 0.51 MG/DL (0.55-1.30); GLOMERULAR FILTRATION RATE > 60.0 (>39); GLUCOSE, FASTING 90 MG/DL (74-106); POTASSIUM SERUM 4.2 MMOL/L (3.5-5.1); SODIUM LEVEL 138 MMOL/L (136-145); TOTAL PROTEIN 7.4 G/DL (5.7-8.2)
[2022-09-28 13:07] LABS: SSA SJOGRENS A <0.2 AI (0.0-0.9); SSB SJOGRENS B <0.2 AI (0.0-0.9)
== END ==
LOC: M PLALAB 13:11
PROVIDERS: ATTEND Physician Assistant
DX: M50.322 Other cervical disc degeneration at C5-C6 level (principal); M47.892 Other spondylosis, cervical region

== ENCOUNTER → 2022-10-20 | Outpatient (CLI) | payer MEDICARE, OTHER | LOC: M WHC 10:56 | PROVIDERS: ATTEND Nurse Practitioner Family | DX: K46.9 Unspecified abdominal hernia without obstruction or gangrene (principal) ==

== ENCOUNTER → 2023-06-26 | Outpatient (CLI) | payer MEDICARE, OTHER ==
[~2023-06-26] MED LIST changes: +LORA-1041 PO; -LORA-674 PO
[2023-06-26 17:28] LABS: ALKALINE PHOSPHATASE 104 U/L (46-116); ALT/SGPT 39 U/L (7.0-40); AST/SGOT 28 U/L (<34); BILIRUBIN,TOTAL 0.6 MG/DL (0.3-1.2); BLOOD UREA NITROGEN 8 MG/DL (9-23); CALCIUM LEVEL 9.2 MG/DL (8.3-10.6); CARBON DIOXIDE LEVEL 29 MMOL/L (20-31); CHLORIDE LEVEL 102 MMOL/L (98-107); CHOLESTEROL LEVEL 185 MG/DL (<200); CHOLESTEROL RISK RATIO 2.97 (<5); CREATININE FOR GFR 0.53 MG/DL (0.55-1.30); GLOMERULAR FILTRATION RATE > 60.0 (>39); GLUCOSE, FASTING 118 MG/DL (74-106); HDL CHOLESTEROL 62.1 MG/DL (>40); LDL CHOLESTEROL 54.5 MG/DL (<100); NON-HDL-C 122.9 MG/DL; POTASSIUM SERUM 3.5 MMOL/L (3.5-5.1); SODIUM LEVEL 137 MMOL/L (136-145); TOTAL PROTEIN 7.6 G/DL (5.7-8.2); TRIGLYCERIDES LEVEL 342 MG/DL (<150)
== END ==
LOC: M WUC 11:20
PROVIDERS: ATTEND Internal Medicine
DX: E78.5 Hyperlipidemia, unspecified (principal); J06.9 Acute upper respiratory infection, unspecified

== ENCOUNTER → 2023-10-11 | Outpatient (CLI) | payer MEDICARE, OTHER | LOC: M WHC 10:54 | PROVIDERS: ATTEND Internal Medicine | DX: Z12.31 Encounter for screening mammogram for malignant neoplasm of breast (principal) ==

== ENCOUNTER → 2023-11-02 | Outpatient (CLI) | payer MEDICARE, OTHER | LOC: M SOG 10:51 | PROVIDERS: ATTEND Orthopaedic Surgery | DX: M54.2 Cervicalgia (principal); M85.88 Other specified disorders of bone density and structure, other site; M47.812 Spondylosis without myelopathy or radiculopathy, cervical region ==

== ENCOUNTER 2023-12-27 11:03 | Day surgery (SDC) | payer MEDICARE, OTHER ==
[~2023-12-27] VITALS: Ht 160 cm; Wt 74.8 kg
[2023-12-27] MEDS: TOBRADEX OPHTH OINT 3.5 GM As Ordered ONE (06:57)
[~2023-12-27 11:03] MED LIST changes: +ALLO100T PO; +AMIT100TA PO; +BACL10TA2 PO; +CLOP75TA2 PO; +DICY20TA20 PO; +ESOM1CAP20 PO; -ESOM1CAP5 PO; +FLUO-365 PO; -FLUO20CA22 PO; +LOMO2.5T PO; +LOPE2TAB12 PO; +OMEP40CA5 PO; +VERA240T64 PO; +ZOLO100T PO
[2023-12-27] MEDS ORDERED: fentaNYL 100 MCG/2 ML INJECTION As Ordered ONE (11:45)
[2023-12-27] MEDS ORDERED: MIDAZOLAM INJ 2MG/2ML VIAL As Ordered ONE (11:45)
[2023-12-27] MEDS: LIDOCAINE 3.5 % 1ML OPHTH TOPICAL GEL OU ONE (12:06)
[2023-12-27] MEDS ORDERED: POVIDONE-IODINE 5% OPHTH PREP SOL 30ML As Ordered ONE (12:16)
[2023-12-27] MEDS: LIDOCAINE 2% W/EPINEPHRINE 20ML VIAL **PRES FREE As Ordered ONE (12:45)
[2023-12-27] MEDS ORDERED: propofoL 200 MG/20 ML VIAL As Ordered ONE (12:49)
[2023-12-27] MEDS ORDERED: LABETALOL 100MG/20ML VIAL As Ordered ONE (12:49)
[2023-12-27 13:35] VITALS: BP 167/73; TEMP 97; O2SAT 99
== END 2023-12-27 13:43 | disposition home or self-care (01) ==
LOC: M SDC 11:03
PROVIDERS: ATTEND Ophthalmology
DX: H02.834 Dermatochalasis of left upper eyelid (principal); H02.831 Dermatochalasis of right upper eyelid; I10 Essential (primary) hypertension; E03.9 Hypothyroidism, unspecified; E78.00 Pure hypercholesterolemia, unspecified; M10.9 Gout, unspecified; K76.0 Fatty (change of) liver, not elsewhere classified; Z79.899 Other long term (current) drug therapy; Z79.02 Long term (current) use of antithrombotics/antiplatelets; Z90.710 Acquired absence of both cervix and uterus; Z86.718 Personal history of other venous thrombosis and embolism
CPT/HCPCS: 15823; 88302; J1920; J2250; J3010

== ENCOUNTER → 2024-06-06 | Outpatient (CLI) | payer MEDICARE, OTHER ==
[2024-06-06 17:50] LABS: BASO % 0.5 % (0.0-1.0); EOS % 0.2 % (0.0-3.0); HEMATOCRIT 38.7 % (36.0-47.0); HEMOGLOBIN 12.8 g/dl (12.0-15.5); LYMPH # 1.6 10^3/uL (1.5-5.0); LYMPH % 36.5 % (24.0-44.0); MEAN CORPUSCULAR HEMOGLOBIN 31.1 pg (27.0-33.0); MEAN CORPUSCULAR HGB CONC 33.1 g/dl (32.0-36.5); MEAN CORPUSCULAR VOLUME 94.2 fl (80.0-96.0); MONO # 0.4 10^3/uL (0.0-0.8); MONO % 9.5 % (2.0-8.0); NEUTROPHILS # 2.3 10^3/uL (1.5-8.5); NEUTROPHILS % 53.1 % (36.0-66.0); PLATELET COUNT, AUTOMATED 193 10^3/uL (150-450); RED BLOOD COUNT 4.11 10^6/uL (4.00-5.40); WHITE BLOOD COUNT 4.3 10^3/uL (4.0-10.0)
[2024-06-06 18:11] LABS: ALKALINE PHOSPHATASE 75 U/L (35-104); ALT/SGPT 31 U/L (7.0-40); AST/SGOT 29 U/L (<34); BILIRUBIN,TOTAL 0.5 MG/DL (0.3-1.2); BLOOD UREA NITROGEN 14 MG/DL (9-23); CALCIUM LEVEL 9.9 MG/DL (8.3-10.6); CARBON DIOXIDE LEVEL 29 MMOL/L (20-31); CHLORIDE LEVEL 100 MMOL/L (98-107); CHOLESTEROL LEVEL 169 MG/DL (<200); CHOLESTEROL RISK RATIO 2.28 (<5); CREATININE FOR GFR 0.59 MG/DL (0.55-1.30); GLOMERULAR FILTRATION RATE > 60.0 (>39); GLUCOSE, FASTING 95 MG/DL (74-106); HDL CHOLESTEROL 74.1 MG/DL (>40); LDL CHOLESTEROL 52.3 MG/DL (<100); NON-HDL-C 94.9 MG/DL; SODIUM LEVEL 138 MMOL/L (136-145); TOTAL PROTEIN 7.4 G/DL (5.7-8.2); TRIGLYCERIDES LEVEL 213 MG/DL (<150)
== END ==
LOC: M WUC 12:17
PROVIDERS: ATTEND Internal Medicine
DX: I67.9 Cerebrovascular disease, unspecified (principal); E78.5 Hyperlipidemia, unspecified

== ENCOUNTER → 2024-06-06 | Outpatient (CLI) | payer MEDICARE, OTHER ==
[2024-06-06 18:10] LABS: FREE T4 1.02 NG/DL (0.89-1.76)
[2024-06-06 18:11] LABS: THYROID STIMULATING HORMONE 2.306 uIU/ML (0.55-4.78)
[2024-06-06 18:57] LABS: FOLATE 21.6 NG/ML (>5.4)
[2024-06-11 23:53] LABS: VITAMIN B6,PYRIDOXAL PHOSPHATE 17.8 ng/mL (2.1-21.7)
== END ==
LOC: M WUC 12:22
PROVIDERS: ATTEND Psychiatry & Neurology Neurology
DX: I67.9 Cerebrovascular disease, unspecified (principal); E78.5 Hyperlipidemia, unspecified; R41.3 Other amnesia; E07.9 Disorder of thyroid, unspecified; E53.8 Deficiency of other specified B group vitamins

== ENCOUNTER → 2024-10-11 | Outpatient (CLI) | payer MEDICARE, OTHER | LOC: M WHC 10:05 | PROVIDERS: ATTEND Neurological Surgery | DX: Z12.31 Encounter for screening mammogram for malignant neoplasm of breast (principal); M85.88 Other specified disorders of bone density and structure, other site; R92.323 Mammographic fibroglandular density, bilateral breasts ==

== ENCOUNTER → 2024-10-11 | Outpatient (CLI) | payer MEDICARE, OTHER | LOC: M WHC 10:02 | PROVIDERS: ATTEND Internal Medicine | DX: Z12.31 Encounter for screening mammogram for malignant neoplasm of breast (principal); R92.323 Mammographic fibroglandular density, bilateral breasts ==

== ENCOUNTER → 2024-10-22 | Outpatient (CLI) | payer MEDICARE, OTHER ==
[2024-10-22 13:16] LABS: ALBUMIN 3.8 G/DL (3.2-5.2); ALKALINE PHOSPHATASE 77 U/L (35-104); ALT/SGPT 39 U/L (7.0-40); AST/SGOT 40 U/L (<34); BILIRUBIN,TOTAL 0.5 MG/DL (0.3-1.2); BLOOD UREA NITROGEN 13 MG/DL (9-23); CALCIUM LEVEL 8.9 MG/DL (8.3-10.6); CARBON DIOXIDE LEVEL 30 MMOL/L (20-31); CHLORIDE LEVEL 99 MMOL/L (98-107); CHOLESTEROL LEVEL 182 MG/DL (<200); CHOLESTEROL RISK RATIO 3.08 (<5); CREATININE FOR GFR 0.61 MG/DL (0.55-1.30); GLOMERULAR FILTRATION RATE > 60.0 (>39); HDL CHOLESTEROL 58.9 MG/DL (>40); NON-HDL-C 123.1 MG/DL; POTASSIUM SERUM 4.3 MMOL/L (3.5-5.1); SODIUM LEVEL 137 MMOL/L (136-145); TOTAL PROTEIN 7.1 G/DL (5.7-8.2); TRIGLYCERIDES LEVEL 437 MG/DL (<150)
[2024-10-23 07:15] LABS: GLUCOSE, FASTING 96 MG/DL (74-106)
== END ==
LOC: M WUC 09:16
PROVIDERS: ATTEND Internal Medicine
DX: E78.5 Hyperlipidemia, unspecified (principal)

== ENCOUNTER → 2024-10-22 | Outpatient (CLI) | payer MEDICARE, OTHER ==
[2024-10-22 13:15] LABS: ALBUMIN 3.8 G/DL (3.2-5.2); ALKALINE PHOSPHATASE 77 U/L (35-104); ALT/SGPT 39 U/L (7.0-40); AST/SGOT 40 U/L (<34); BILIRUBIN,TOTAL 0.5 MG/DL (0.3-1.2); BLOOD UREA NITROGEN 12 MG/DL (9-23); CARBON DIOXIDE LEVEL 30 MMOL/L (20-31); CHLORIDE LEVEL 99 MMOL/L (98-107); CREATININE FOR GFR 0.62 MG/DL (0.55-1.30); GLOMERULAR FILTRATION RATE > 60.0 (>39); GLUCOSE, FASTING 96 MG/DL (74-106); POTASSIUM SERUM 4.3 MMOL/L (3.5-5.1); PTH INTACT 156.4 PG/ML (18.5-88.0); SODIUM LEVEL 137 MMOL/L (136-145); TOTAL PROTEIN 7.2 G/DL (5.7-8.2)
[2024-10-22 13:16] LABS: TOTAL 25(OH) VITAMIN D 25.7 NG/ML (20.0-100.0)
== END ==
LOC: M WUC 09:18
PROVIDERS: ATTEND Nurse Practitioner Family
DX: M85.88 Other specified disorders of bone density and structure, other site (principal); E55.9 Vitamin D deficiency, unspecified

== ENCOUNTER → 2024-10-22 | Outpatient (CLI) | payer MEDICARE, OTHER | LOC: M PLAIMG 11:22 | PROVIDERS: ATTEND Neurological Surgery | DX: M50.222 Other cervical disc displacement at C5-C6 level (principal); M47.896 Other spondylosis, lumbar region; E55.9 Vitamin D deficiency, unspecified; M85.88 Other specified disorders of bone density and structure, other site; E78.5 Hyperlipidemia, unspecified ==

== ENCOUNTER → 2024-12-03 | Outpatient (REF) | payer MEDICARE, OTHER | LOC: M LAB REF 20:08 | PROVIDERS: ATTEND Internal Medicine | DX: E03.9 Hypothyroidism, unspecified (principal) ==

== ENCOUNTER → 2025-02-25 | Outpatient (CLI) | payer MEDICARE, OTHER ==
[2025-02-25 15:51] LABS: ALT/SGPT 26 U/L (7.0-40); AST/SGOT 29 U/L (<34); CALCIUM LEVEL 9.4 MG/DL (8.3-10.6); CARBON DIOXIDE LEVEL 29 MMOL/L (20-31); CHLORIDE LEVEL 95 MMOL/L (98-107); CREATININE FOR GFR 0.67 MG/DL (0.55-1.30); GLOMERULAR FILTRATION RATE > 90.0 (>39); POTASSIUM SERUM 4.4 MMOL/L (3.5-5.1); PTH INTACT 149.5 PG/ML (18.5-88.0); SODIUM LEVEL 136 MMOL/L (136-145)
[2025-02-25 15:52] LABS: TOTAL 25(OH) VITAMIN D 49.6 NG/ML (20.0-100.0)
== END ==
LOC: M WUC 11:20
PROVIDERS: ATTEND Nurse Practitioner Family
DX: M85.88 Other specified disorders of bone density and structure, other site (principal); E55.9 Vitamin D deficiency, unspecified

== ENCOUNTER → 2025-03-21 | Outpatient (CLI) | payer MEDICARE, OTHER ==
[2025-03-21 14:00] LABS: BASO # 0.0 10^3/uL (0.0-0.2); BASO % 0.8 % (0.0-1.0); EOS # 0.0 10^3/uL (0.0-0.5); EOS % 0.5 % (0.0-3.0); LYMPH # 1.6 10^3/uL (1.5-5.0); LYMPH % 39.7 % (24.0-44.0); MONO # 0.4 10^3/uL (0.0-0.8); MONO % 10.0 % (2.0-8.0); NEUTROPHILS # 1.9 10^3/uL (1.5-8.5); NEUTROPHILS % 48.5 % (36.0-66.0); PLATELET COUNT, AUTOMATED 232 10^3/uL (150-450)
[2025-03-21 14:02] LABS: BASO # 0.0 10^3/uL (0.0-0.2); BASO % 0.8 % (0.0-1.0); EOS # 0.0 10^3/uL (0.0-0.5); EOS % 0.3 % (0.0-3.0); LYMPH # 1.6 10^3/uL (1.5-5.0); LYMPH % 40.1 % (24.0-44.0); MONO # 0.4 10^3/uL (0.0-0.8); MONO % 9.8 % (2.0-8.0); NEUTROPHILS # 2.0 10^3/uL (1.5-8.5); NEUTROPHILS % 49.0 % (36.0-66.0); PLATELET COUNT, AUTOMATED 227 10^3/uL (150-450)
[2025-03-21 14:18] LABS: INR 1.02
[2025-03-21 14:28] LABS: ALT/SGPT 23 U/L (7.0-40); AST/SGOT 26 U/L (<34); CALCIUM LEVEL 9.7 MG/DL (8.3-10.6); CARBON DIOXIDE LEVEL 29 MMOL/L (20-31); CHLORIDE LEVEL 96 MMOL/L (98-107); CHOLESTEROL LEVEL 178 MG/DL (<200); CHOLESTEROL RISK RATIO 2.57 (<5); CREATININE FOR GFR 0.65 MG/DL (0.55-1.30); ESTIMATED AVERAGE GLUCOSE 111.0 MG/DL (60-110); GLOMERULAR FILTRATION RATE > 90.0 (>39); LDL CHOLESTEROL 58.4 MG/DL (<100); NON-HDL-C 108.8 MG/DL; POTASSIUM SERUM 4.3 MMOL/L (3.5-5.1); SODIUM LEVEL 136 MMOL/L (136-145); TRIGLYCERIDES LEVEL 252 MG/DL (<150)
[2025-03-21 14:29] LABS: ALT/SGPT 23 U/L (7.0-40); AST/SGOT 26 U/L (<34); CALCIUM LEVEL 9.7 MG/DL (8.3-10.6); CARBON DIOXIDE LEVEL 27 MMOL/L (20-31); CHLORIDE LEVEL 97 MMOL/L (98-107); CREATININE FOR GFR 0.65 MG/DL (0.55-1.30); GLOMERULAR FILTRATION RATE > 90.0 (>39); POTASSIUM SERUM 4.3 MMOL/L (3.5-5.1); SODIUM LEVEL 136 MMOL/L (136-145)
== END ==
LOC: M WUC 12:07
PROVIDERS: ATTEND Internal Medicine
DX: E78.5 Hyperlipidemia, unspecified (principal); Z79.01 Long term (current) use of anticoagulants

== ENCOUNTER → 2025-03-21 | Outpatient (CLI) | payer MEDICARE, OTHER | LOC: M WUC 12:09 | PROVIDERS: ATTEND Nurse Practitioner Family | DX: M50.222 Other cervical disc displacement at C5-C6 level (principal) ==

== ENCOUNTER → 2025-07-03 | Outpatient (CLI) | payer MEDICARE, OTHER | LOC: M PLAIMG 12:56 | PROVIDERS: ATTEND Nurse Practitioner Family | DX: R13.19 Other dysphagia (principal); M50.222 Other cervical disc displacement at C5-C6 level; M50.223 Other cervical disc displacement at C6-C7 level; I65.23 Occlusion and stenosis of bilateral carotid arteries ==